=== PATIENT | male | born 1995 | race African-American/Black ===

== ENCOUNTER → 2017-03-12 | Outpatient (REF) | payer OTHER, MEDICAID | LOC: M LAB REF 17:09 | PROVIDERS: ATTEND Family Medicine Addiction Medicine | DX: Z20.2 Contact with and (suspected) exposure to infections with a predominantly sexual mode of transmission (principal) ==

== ENCOUNTER → 2017-03-31 | Outpatient (CLI) | payer MEDICAID | LOC: M OUTALCOH 11:39 | PROVIDERS: ATTEND Psychiatry & Neurology Psychiatry | DX: F12.20 Cannabis dependence, uncomplicated (principal) ==

== ENCOUNTER → 2019-02-05 | Outpatient (REF) | payer MEDICAID ==
[2019-02-05 17:57] LABS: ALBUMIN 3.6 GM/DL (3.2-5.2); ALT/SGPT 290 U/L (12-78); BILIRUBIN,TOTAL 0.3 MG/DL (0.2-1.0); BLOOD UREA NITROGEN 11 MG/DL (7-18); CARBON DIOXIDE LEVEL 26 MEQ/L (21-32); CHLORIDE LEVEL 111 MEQ/L (98-107); CHOLESTEROL LEVEL 114 MG/DL (<200); CHOLESTEROL RISK RATIO 2.035 (<5); FREE T4 0.93 NG/DL (0.76-1.46); GLOMERULAR FILTRATION RATE > 60.0 (>60); GLUCOSE, FASTING 72 MG/DL (70-100); HDL CHOLESTEROL 56 MG/DL (>40); LDL CHOLESTEROL 48 MG/DL (<100); NON-HDL-C 58 MG/DL; POTASSIUM SERUM 5.9 MEQ/L (3.5-5.1); SODIUM LEVEL 139 MEQ/L (136-145); TOTAL PROTEIN 6.9 GM/DL (6.4-8.2); TRIGLYCERIDES LEVEL 51 MG/DL (<150)
[2019-02-05 18:00] LABS: TOTAL 25(OH) VITAMIN D 18.1 NG/ML (30.0-100.0)
[2019-02-05 18:03] LABS: BASO % 0.6 % (0.0-1.0); EOS # 0.2 10^3/uL (0.0-0.5); EOS % 3.3 % (0.0-3.0); HEMOGLOBIN 14.7 g/dl (13.5-17.5); LYMPH # 2.5 10^3/uL (1.5-5.0); LYMPH % 38.6 % (24.0-44.0); MEAN CORPUSCULAR HEMOGLOBIN 28.9 pg (27.0-33.0); MEAN CORPUSCULAR HGB CONC 30.6 g/dl (32.0-36.5); MEAN CORPUSCULAR VOLUME 94.5 fl (80.0-96.0); MONO # 0.8 10^3/uL (0.0-0.8); MONO % 12.5 % (0.0-5.0); NEUTROPHILS # 2.9 10^3/uL (1.5-8.5); NEUTROPHILS % 44.7 % (36.0-66.0); PLATELET COUNT, AUTOMATED 246 10^3/uL (150-450); RED BLOOD COUNT 5.08 10^6/uL (4.30-6.10); WHITE BLOOD COUNT 6.4 10^3/uL (4.0-10.0)
[2019-02-05 18:09] LABS: HEMOGLOBIN A1c 4.9 %
[2019-02-05 18:41] LABS: HIV 1&2 SCREEN CENTAUR NEGATIVE (NEGATIVE)
[2019-02-08 10:50] LABS: HEPATITIS B SURFACE ANTIBODY POSITIVE (POSITIVE)
[2019-02-08 11:19] LABS: HEPATITIS C VIRUS ABY INDEX > 11.0 INDEX (<0.8)
== END ==
LOC: M LAB REF 16:25
PROVIDERS: ATTEND Nurse Practitioner Family
DX: Z11.3 Encounter for screening for infections with a predominantly sexual mode of transmission (principal); F19.10 Other psychoactive substance abuse, uncomplicated; Z13.29 Encounter for screening for other suspected endocrine disorder

== ENCOUNTER → 2019-02-25 | Outpatient (REF) | payer MEDICAID | LOC: M LAB REF 09:15 | PROVIDERS: ATTEND Nurse Practitioner Adult Health | DX: B18.2 Chronic viral hepatitis C (principal) ==

== ENCOUNTER 2019-03-05 22:20 | Observation (INO) | payer MEDICAID, OTHER ==
[~2019-03-05] VITALS: Ht 165.1 cm; Wt 70.5 kg
[2019-03-05] MEDS ORDERED: TAMSULOSIN 0.4 MG CAP PO ONE (22:30)
[2019-03-05] MEDS ORDERED: KETOROLAC 30 MG/ML VIAL (J1885) IV ONE (22:30)
[2019-03-05] MEDS ORDERED: NS 1,000 ML IV ONE (22:30)
[2019-03-05 22:46] LABS: BASO # 0.1 10^3/uL (0.0-0.2); BASO % 0.9 % (0.0-1.0); EOS # 0.2 10^3/uL (0.0-0.5); EOS % 2.6 % (0.0-3.0); HEMOGLOBIN 12.6 g/dl (13.5-17.5); LYMPH # 3.1 10^3/uL (1.5-5.0); LYMPH % 53.5 % (24.0-44.0); MEAN CORPUSCULAR HEMOGLOBIN 28.1 pg (27.0-33.0); MEAN CORPUSCULAR VOLUME 93.5 fl (80.0-96.0); MONO # 0.6 10^3/uL (0.0-0.8); MONO % 9.9 % (0.0-5.0); NEUTROPHILS # 1.9 10^3/uL (1.5-8.5); NEUTROPHILS % 32.6 % (36.0-66.0); PLATELET COUNT, AUTOMATED 242 10^3/uL (150-450); RED BLOOD COUNT 4.49 10^6/uL (4.30-6.10); WHITE BLOOD COUNT 5.9 10^3/uL (4.0-10.0)
[2019-03-05 23:13] LABS: ALBUMIN 3.3 GM/DL (3.2-5.2); ALT/SGPT 115 U/L (12-78); BILIRUBIN,DIRECT 0.9 MG/DL (0.0-0.2); BILIRUBIN,TOTAL 1.1 MG/DL (0.2-1.0); BLOOD UREA NITROGEN 13 MG/DL (7-18); CALCIUM LEVEL 8.6 MG/DL (8.5-10.1); CARBON DIOXIDE LEVEL 24 MEQ/L (21-32); CHLORIDE LEVEL 116 MEQ/L (98-107); CREATININE FOR GFR 1.01 MG/DL (0.70-1.30); GLOMERULAR FILTRATION RATE > 60.0 (>60); GLUCOSE, FASTING 145 MG/DL (70-100); LIPASE 242 U/L (73-393); POTASSIUM SERUM 5.7 MEQ/L (3.5-5.1); SODIUM LEVEL 141 MEQ/L (136-145); TOTAL PROTEIN 7.2 GM/DL (6.4-8.2)
[2019-03-05] MEDS ORDERED: KETAMINE HCL IV ONE (23:15)
[2019-03-05] MEDS ORDERED: NS IV ONE (23:15)
--- NOTE | 2019-03-05 23:15 | REPVR ---
PROCEDURE INFORMATION: Exam: CT Abdomen And Pelvis Without Contrast Exam date and time: 03/05/2019 10:45 PM Clinical history: 23 years old, male; Abdominal pain; Generalized; Additional info: R colic TECHNIQUE: Imaging protocol: Computed tomography of the abdomen and pelvis without contrast. Radiation optimization: All CT scans at this facility use at least one of these dose optimization techniques: automated exposure control; mA and/or kV adjustment per patient size (includes targeted exams where dose is matched to clinical indication); or iterative reconstruction. COMPARISON: No relevant prior studies available. FINDINGS: Liver: Normal. No mass. Gallbladder and bile ducts: Normal. No calcified stones. No ductal dilation. Pancreas: Normal. No ductal dilation. Spleen: Normal. No splenomegaly. Adrenals: Normal. No mass. Kidneys and ureters: Normal. No hydronephrosis. Stomach and bowel: Unremarkable. No obstruction. No mucosal thickening. Appendix: The appendix is within normal limits. There is no appendiceal enlargement, periappendiceal inflammatory changes or abscess. Intraperitoneal space: Unremarkable. No free air. No significant fluid collection. Vasculature: Unremarkable. No abdominal aortic aneurysm. Lymph nodes: Unremarkable. No enlarged lymph nodes. Bladder: Unremarkable as visualized. Reproductive: The prostate gland demonstrates mild hyperplasia. Bones/joints: Unremarkable. No acute fracture. Soft tissues: Unremarkable. IMPRESSION: 1. Mild prostatic hyperplasia. 2. The appendix is within normal limits. There is no appendiceal enlargement, periappendiceal inflammatory changes or abscess. Electronically signed by: Daljit Pino On 03/05/2019 23:14:35 PM
[2019-03-05] MEDS ORDERED: SOD POLYSTYRENE SULFONATE SUSP 15 GM/60 ML UD PO ONE (23:45)
[2019-03-06 00:47] LABS: APPEARANCE, URINE CLEAR (CLEAR); BACTERIA, URINE AUTO NEGATIVE (NEGATIVE); BILIRUBIN, URINE AUTO NEGATIVE (NEGATIVE); BLOOD, URINE BLOOD NEGATIVE (NEGATIVE); COLOR, URINE YELLOW (YELLOW); GLUCOSE, URINE (UA) AUTO NEGATIVE (NEGATIVE); KETONE, URINE AUTO NEGATIVE (NEGATIVE); LEUKOCYTE ESTERASE, URINE AUTO NEGATIVE (NEGATIVE); MUCUS, URINE SMALL (NEGATIVE); NITRITE, URINE AUTO NEGATIVE (NEGATIVE); PROTEIN, URINE AUTO NEGATIVE (NEGATIVE); RBC, URINE AUTO 1 /HPF (0-3); SPECIFIC GRAVITY URINE AUTO 1.015 (1.002-1.035); SQUAMOUS EPITHELIAL CELL UR AU 0 /HPF (0-6); UROBILINOGEN, URINE AUTO 0.2 mg/dL (0.0-2.0); WBC, URINE AUTO 3 /HPF (0-3)
[2019-03-06] MEDS ORDERED: ACETAMINOPHEN 500 MG TAB PO ONE (01:00)
[2019-03-06] MEDS ORDERED: MORPHINE 4 MG/ML 1ML VIAL/SYRINGE (J2270) IV ONE ×2 (01:15→01:45)
[2019-03-06] MEDS ORDERED: D5W/LR 1,000 ML IV SCH (01:45)
--- NOTE | 2019-03-06 01:47 | REPVR ---
PROCEDURE INFORMATION: Exam: US Scrotum Exam date and time: 03/06/2019 1:29 AM Clinical history: 23 years old, male; Flank pain and scrotum pain; Additional info: R testicle pain TECHNIQUE: Imaging protocol: Real-time ultrasound of the scrotum and contents with color Doppler and image documentation. COMPARISON: No relevant prior studies available. FINDINGS: Right testicle: The right testicle measures 5.6 x 3 x 3.1 cm. No no evidence of vascular flow to the right testicle is detected on Doppler evaluation. Left testicle: The left testicle measures 4.8 x 2.5 x 2.1 cm. There is normal left testicular vascular flow. The left testicular resistive index is 0.47. Epididymides: The right epididymis measures 8.4 mm in length. The left epididymis measures 8.2 mm length. Scrotum: There is a mild right hydrocele. IMPRESSION: No discernible vascular flow is detected to the right testicle with testicular swelling. The findings demonstrate evidence of right testicular torsion. Electronically signed by: Eliot Boone On 03/06/2019 01:46:31 AM
[2019-03-06] MEDS ORDERED: BUPIVACAINE HCL 0.25% 30 ML VIAL As Ordered ONE (01:58)
[2019-03-06] MEDS ORDERED: BACITRACIN OINT 30GM As Ordered ONE (02:04)
[2019-03-06] MEDS ORDERED: ceFAZolin 2 GM/D5W 50 ML IV BAG (J0690 PER 500MG) As Ordered ONE (02:25)
--- NOTE | 2019-03-06 02:32 | SMCUROLCON ---
Urology Consultation General Date of Consultation 03/06/19 Reason For Consultation This patient is seen for Testicular Torsion. History of Present Illness This is a 23 y/o M w/ no significant PMH, presenting to the ED w/ acute onset right testicular pain starting about 6 hrs ago. He denies n/v. No f/c/ns. He has never had anything like this before. Denies left testicular pain. A scrotal US in the ER is notable for absent flow to the right testicle. Past Medical History Medical History none Surgical Hstory no surgeries Medications Current Medications Current Medications Medications (Trade) Dose Ordered Sig/Sherita Route PRN Reason Start Time Stop Time Status Last Admin Dose Admin Dextrose/Lactated Ringer's 1,000 ml @ 150 mls/hr [id number] IV 03/06/19 01:45 03/06/19 01:57 Home Med (Med Rec Complete!) ASDIRECTED XX 03/06/19 02:00 03/06/19 01:54 DC Allergies Allergies: Coded Allergies: No Known Allergies (Unverified , 03/05/19) Review of Systems Constitutional: Denies: Fever, Chills, Sweats, Weakness, Malaise Pulmonary: Denies: Dyspnea, Cough Cardiovascular: Denies Chest Pain, Denies Palpitations Gastrointestinal: Reports: Abdominal Pain; Denies: Nausea, Vomiting Genitourinary: Reports: Other Symptoms (right testicular pain radiating up to his abdomen); Denies: Dysuria, Frequency, Incontinence, Hematuria, Retention Musculoskeletal: Denies: Neck Pain, Back Pain Psych: Reports: Mood Normal Physical Examination General Exam: Alert, Cooperative, No Acute Distress Chest Exam: Clear to auscultation Heart Exam: Rate Normal, Regular Rhythm Abdomen Exam: Soft, Tenderness (RLQ tenderness) Male Exam circumcised phallus w/o lesions; b/l descended testicles w/o masses; right testicle high-riding and tender w/ mild/moderate edema Vital Signs/I&O Vital Signs Date Time Temp Pulse Resp B/P (MAP) Pulse Ox O2 Delivery O2 Flow Rate FiO2 03/06/19 02:05 97.7 70 16 117/67 99 Room Air I&O- Last 24 Hours up to 6 AM 03/06/19 05:59 Intake Total 1100.282 ml Balance 1100.282 ml Laboratory Data 24H Labs Laboratory Tests 2 03/05/19 22:35: Immature Granulocyte % (Auto) 0.5, Neutrophils (%) (Auto) 32.6L, Lymphocytes (%) (Auto) 53.5H, Monocytes (%) (Auto) 9.9H, Eosinophils (%) (Auto) 2.6, Basophils (%) (Auto) 0.9, Neutrophils # (Auto) 1.9, Lymphocytes # (Auto) 3.1, Monocytes # (Auto) 0.6, Eosinophils # (Auto) 0.2, Basophils # (Auto) 0.1, Nucleated Red Blood Cells % (auto) 0.0, Urine Color YELLOW, Urine Appearance CLEAR, Urine pH 6.0, Urine Specific [place] 1.015, Urine Protein NEGATIVE, Urine Glucose (Auto)(UA) NEGATIVE, Urine Ketones (Auto) NEGATIVE, Urine Blood NEGATIVE, Urine Nitrite NEGATIVE, Urine Bilirubin NEGATIVE, Urine Urobilinogen 0.2, Urine Leukoc yte Esterase (Auto) NEGATIVE, Urine WBC (Auto) 3, Urine RBC (Auto) 1, Urine Hyaline Casts (Auto) 0, Urine Bacteria (Auto) NEGATIVE, Urine Squamous Epithelial Cells 0, Urine Mucus (Auto) SMALL, Urine Sperm (Auto) , Anion Gap 1L, Glomerular Filtration Rate > 60.0, Calcium Level 8.6, Total Bilirubin 1.1H, Direct Bilirubin 0.9H, Aspartate Amino Transf (AST/SGOT) 21, Alanine Aminotransferase (ALT/SGPT) 115H, Alkaline Phosphatase 106, Total Protein 7.2, Albumin 3.3, Albumin/Globulin Ratio 0.85L, Lipase 242 CBC/BMP Laboratory Tests 03/05/19 22:35 Microbiology Microbiology 03/05/19 Urine Culture, Received Pending Assessment This is a 23 y/o M w/ a right testicular torsion. It was recommended that we take him to the OR now for right orchiopexy, possible right orchiectomy. After a discussion of the risks and benefits, informed consent was signed. Plan - to OR now - NPO - ancef 2g IV OCOR - plan discharge home later this morning assuming pain is better controlled at that point AYLEEN WRAY MD Mar 06, 2019 02:32
[2019-03-06] MEDS ORDERED: DEXTROSE 50% 50 ML SYRINGE As Ordered ONE (02:38)
[2019-03-06] MEDS ORDERED: HumuLIN R (REGULAR) INSULIN (NovoLIN R) **100U/ML** PER UNIT As Ordered ONE ×2 (02:38→06:14)
[2019-03-06] MEDS ORDERED: MIDAZOLAM INJ 2 MG/2 ML VIAL (J2250) As Ordered ONE (02:56)
[2019-03-06] MEDS ORDERED: fentaNYL 100 MCG/2 ML INJECTION (J3010) As Ordered ONE (02:56)
[2019-03-06] MEDS ORDERED: PROPOFOL 200 MG/20 ML VIAL As Ordered ONE (02:56)
[2019-03-06] MEDS ORDERED: LIDOCAINE 2% INJ 100 MG/5 ML SDV (FOR ANES.) As Ordered ONE (02:56)
[2019-03-06] MEDS ORDERED: ROCURONIUM BROMIDE 50 MG/5 ML VIAL As Ordered ONE (02:56)
[2019-03-06] MEDS ORDERED: CALCIUM CHLORIDE 10% 1 GM/10 ML SYR As Ordered ONE (02:57)
[2019-03-06] MEDS ORDERED: SODIUM BICARBONATE 8.4% INJ 50 ML SYRINGE As Ordered ONE (02:57)
[2019-03-06] MEDS ORDERED: PHENYLephrine HCL 500 MCG/5 ML (100MCG/ML) SYRINGE (J2370) As Ordered ONE (03:08)
[2019-03-06] MEDS ORDERED: dexameTHASONE 4 MG/ML 1ML VIAL (J1100) As Ordered ONE (03:15)
[2019-03-06] MEDS ORDERED: ONDANSETRON 4MG/2ML VIAL (J2405) As Ordered ONE (03:15)
[2019-03-06] MEDS ORDERED: SUGAMMADEX SODIUM 500 MG/5 ML VIAL (BRIDION) As Ordered ONE (03:17)
[2019-03-06] MEDS ORDERED: PERC5TAB12 PO (04:13)
[2019-03-06] MEDS ORDERED: NS 1,000 ML IV SCH (04:15)
[2019-03-06] MEDS ORDERED: fentaNYL 100 MCG/2 ML INJECTION (J3010) IV PRN (04:15)
[2019-03-06] MEDS ORDERED: ONDANSETRON 4MG/2ML VIAL (J2405) IV PRN (04:15)
[2019-03-06] MEDS ORDERED: oxyCODONE 5MG TAB PO PRN (04:15)
--- NOTE | 2019-03-06 05:14 | HPEPDOC ---
[facility] Medical History & Physical Date of Admission Mar 06, 2019 Date of Service: Mar 06, 2019 Attending Physician: TRIXIE PEÑA MD History and Physical CHIEF COMPLAINT: s/p R orchipexy, found to have hyperkalemia HISTORY OF PRESENT ILLNESS: Brian Frias is a 23 YO M with history of HepC? who is s/p R orchipexy on 03/06/2019 for R testicular torsion found to have hyperkalemia at 5.7. The surgery was uneventful and the patient denies any chest pain, SOB, n/v/d at this time. Anesthesiology noted possible peaked T-waves on EKG strips captured in the OR. The patient does have a previous history of hype rkalemia (5.9) on lab draw 02/05/2019. To his knowledge, this was not worked up further. The patient denies the use of any medications, including those [id number], prior to his surgery. PAST MEDICAL HISTORY: Hepatitis C PAST SURGICAL HISTORY: R orchipexy SOCIAL HISTORY: nonsmoker, no EtOH, denies illicit drugs FAMILY HISTORY: T2DM ALLERGIES: Please see below. REVIEW OF SYSTEMS: CONSTITUTIONAL: Feels well. No fever or chills HEENT: denies vision changes, no sinus problems, denies any trouble swallowing CARDIOVASCULAR: no palpitations RESPIRATORY: Denies any shortness of breath GENITOURINARY: No dysuria MUSCULOSKELETAL: Denies any joint/muscle pain GASTROINTESTINAL: Denies abdominal pain, no nausea/vomiting/diarrhea SKIN: No new rashes or lesions NEUROLOGICAL: No loss of sensation PSYCHIATRIC: Reports normal mood, no delusions or hallucinations ENDOCRINE: No hot/cold intolerance HEMATOLOGIC/LYMPHATIC: No easy bruising, no lumps/bumps ALLERGIC/IMMUNOLOGIC: No sinus symptoms HOME MEDICATIONS: Please see below. PHYSICAL EXAMINATION: VITAL SIGNS: Please see below. GENERAL APPEARANCE: Laying in bed, appears stated age, no acute distress, calm, cooperative HEENT: EOMI, PERRLA, neck is supple with no thyromegaly or lymphadenopathy RESPIRATORY: Lungs are clear to auscultation bilaterally with no adventitious breath sounds appreciated CARDIOVASCULAR: no JVD, RRR,no murmurs/rubs/gallops ABDOMEN: Soft, nontender to palpation in all four quadrants, no masses/organomegaly EXTREMITIES: no clubbing, cyanosis or edema noted NEUROLOGICAL: No obvious focal deficits PSYCHIATRIC: normal mood/affect Skin: No rashes or ulcers. LN: No significant cervical or inguinal lymphadenopathy LABORATORY DATA: See below. IMAGING: none MICROBIOLOGY: Please see below. ASSESSMENT: This is a 23 YO M s/p R orchipexy for testicular torsion found to have hyperkalemia. Hospitalist service was called to admit the patient for further workup. . PLAN: 1. Hyperkalemia: possibly 2/2 hemolyzed specimen vs. diabetes/insulin resistance vs T4RTA vs recent excessive use of NSAIDS -EKG ordered -Pending Mg level, serum Osm, Urine Osm, Urine Na, Urine K, Urine Cr, A1c -Other electrolytes WNL -Continuous telemetry -continue IVF -Next BMP ordered for 0600. Will trend K. 2. S/p R orchipexy: -Routine postoperative care as directed by Urology -Pain control, IV Zofran, IVF DISPO: Pending workup for hyperkalemia Vital Signs Vital Signs Date Time Temp Pulse Resp B/P (MAP) Pulse Ox O2 Delivery O2 Flow Rate FiO2 03/06/19 04:20 83 18 116/64 (81) 97 Room Air 03/06/19 03:50 99.5 Laboratory Data Labs 24H Laboratory Tests 2 03/05/19 22:35: Immature Granulocyte % (Auto) 0.5, Neutrophils (%) (Auto) 32.6L, Lymphocytes (%) (Auto) 53.5H, Monocytes (%) (Auto) 9.9H, Eosinophils (%) (Auto) 2.6, Basophils (%) (Auto) 0.9, Neutrophils # (Auto) 1.9, Lymphocytes # (Auto) 3.1, Monocytes # (Auto) 0.6, Eosinophils # (Auto) 0.2, Basophils # (Auto) 0.1, Nucleated Red Blood Cells % (auto) 0.0, Urine Color YELLOW, Urine Appearance CLEAR, Urine pH 6.0, Urine Specific [place] 1.015, Urine Protein NEGATIVE, Urine Glucose (Auto)(UA) NEGATIVE, Urine Ketones (Auto) NEGATIVE, Urine Blood NEGATIVE, Urine Nitrite NEGATIVE, Urine Bilirubin NEGATIVE, Urine Urobilinogen 0.2, Urine Leukocyte Esterase (Auto) NEGATIVE, Urine WBC (Auto) 3, Urine RBC (Auto) 1, Urine Hyaline Casts (Auto) 0, Urine Bacteria (Auto) NEGATIVE, Urine Squamous Epithelial Cells 0, Urine Mucus (Auto) SMALL, Urine Sperm (Auto) , Anion Gap 1L, Glomerular Filtration Rate > 60.0, Calcium Level 8.6, Total Bilirubin 1.1H, Direct Bilirubin 0.9H, Aspartate Amino Transf (AST/SGOT) 21, Alanine Aminotransferase (ALT/SGPT) 115H, Alkaline Phosphatase 106, Total Protein 7.2, Albumin 3.3, Albumin/Globulin Ratio 0.85L, Lipase 242 03/06/19 03:08: Bedside Glucose (Misc Panel) 190H 03/06/19 03:21: POC pH (Misc Panel) 7.365, POC Base Excess (Misc Panel) -4.0L, POC Saturated Percent O2 (Misc) 100H, POC pO2 (Misc Panel) 178.0H, POC pCO2 (Misc Panel) 37.0, POC HCO3 (Misc Panel) 21.1L, POC Glucose (Misc Panel) 174H, POC Sodium (Misc Panel) 138, POC Potassium (Misc Panel) 5.6H, POC Total CO2 (Misc Panel) 22.0L, POC Ionized Calcium (Misc Panel) 5.6H, POC Hemoglobin (Calculated)(Misc) 11.9L, POC Hematocrit (Misc Panel) 35.0L 03/06/19 03:58: Bedside Glucose (Misc Panel) 106H CBC/BMP Laboratory Tests 03/05/19 22:35 Microbiology Microbiology 03/05/19 Urine Culture, Received Pending Home Medications Scheduled Oxycodone HCl/Acetaminophen (Percocet 5-325 mg Tablet) 1 Each Tablet, 1 TAB PO Q6H for moderate to severe pain Allergies Coded Allergies: No Known Allergies (Unverified , 03/05/19) GME ATTESTATION GME ATTESTATION My faculty preceptor for this patient encounter was physically present during the encounter and was fully available. All aspects of the patient interview, examination, medical decision making process, and medical care plan development were reviewed and approved by the faculty preceptor. The faculty preceptor is aware and concurs with the plan as stated in the body of this note and will attest to such by his/her cosignature. ATTENDING NOTE I examined at 435AM, discussed the case with and agree with the findings as documented with the addition of the following: Mr. Frias 23 yr old M who had an emergent orchiopexy for testicular torsion; per 's request he was will be admitted for evaluation of hyperkalemia and abnormalities on telemetry. The patient denies taking any medications and denies having palpitations. The mild hyperkalemia was likely due to tissue break down in the setting of testicular torsion. We will repeat the K and follow up on the EKG; he will likely go home later on today. LATE ENTRY 713AM Per d/w the patient's RN his EKG is still pending but he has peaked Twaves on telemetry Plan: stat EKG / calcium gluconate, sodium bicarb, insulin & dextrose + patiromer (to bind K) / f/u serial BMPs KAILYN DUONG MD Mar 06, 2019 05:08 TRIXIE PEÑA MD Mar 06, 2019 05:23
[2019-03-06 05:24] VITALS: BP 129/65
[2019-03-06 06:14] LABS: HEMATOCRIT 43.6 % (42.0-52.0); MEAN CORPUSCULAR HEMOGLOBIN 27.9 pg (27.0-33.0); MEAN CORPUSCULAR HGB CONC 29.8 g/dl (32.0-36.5); MEAN CORPUSCULAR VOLUME 93.6 fl (80.0-96.0); PLATELET COUNT, AUTOMATED 285 10^3/uL (150-450); RED BLOOD COUNT 4.66 10^6/uL (4.30-6.10); WHITE BLOOD COUNT 6.8 10^3/uL (4.0-10.0)
[2019-03-06 06:43] LABS: BLOOD UREA NITROGEN 9 MG/DL (7-18); CALCIUM LEVEL 9.2 MG/DL (8.5-10.1); CARBON DIOXIDE LEVEL 24 MEQ/L (21-32); CHLORIDE LEVEL 113 MEQ/L (98-107); CREATININE FOR GFR 0.96 MG/DL (0.70-1.30); GLOMERULAR FILTRATION RATE > 60.0 (>60); GLUCOSE, FASTING 96 MG/DL (70-100); POTASSIUM SERUM 6.2 MEQ/L (3.5-5.1); SODIUM LEVEL 140 MEQ/L (136-145)
[2019-03-06] MEDS ORDERED: SOD POLYSTYRENE SULFONATE SUSP 15 GM/60 ML UD PO ONE (07:00)
[2019-03-06] MEDS ORDERED: DEXTROSE 50% 50 ML SYRINGE IV STA (07:10)
[2019-03-06] MEDS ORDERED: HumuLIN R (REGULAR) INSULIN (NovoLIN R) **100U/ML** PER UNIT IV STA (07:10)
[2019-03-06] MEDS ORDERED: PATIROMER SORBITEX CALCIUM 8.4 GM POWDER PACKET (VELTASSA) PO ONE (07:15)
[2019-03-06] MEDS ORDERED: SODIUM CHLORIDE 0.9% 1000ML IV SCH (07:15)
[2019-03-06] MEDS ORDERED: CALCIUM GLUCONATE 1,000 MG in D5W MINI-BAG PLUS 100 ML IV ONE (07:15)
[2019-03-06 07:30] VITALS: BP 127/65
[2019-03-06 08:30] VITALS: BP 139/67
[2019-03-06 08:32] LABS: BLOOD UREA NITROGEN 8 MG/DL (7-18); CALCIUM LEVEL 9.1 MG/DL (8.5-10.1); CARBON DIOXIDE LEVEL 24 MEQ/L (21-32); CHLORIDE LEVEL 114 MEQ/L (98-107); CREATININE FOR GFR 0.94 MG/DL (0.70-1.30); GLOMERULAR FILTRATION RATE > 60.0 (>60); GLUCOSE, FASTING 88 MG/DL (70-100); POTASSIUM SERUM 7.1 MEQ/L (3.5-5.1); SODIUM LEVEL 138 MEQ/L (136-145)
[2019-03-06 09:00] LABS: CREATININE,RANDOM URINE 34.4 MG/DL; POTASSIUM RANDOM URINE 24.7 MEQ/L
--- NOTE | 2019-03-06 09:09 | ECGEPIP ---
[facility] Test Date: 2019-03-06 Pat Name: GARY LITTLE Department: Room: [place] [address] Gender: Male Gut Snatcher: SETH : 1995 Requested By: TRIXIE PEÑA Order Number: [id number] Reading MD: Tejas Galarza Measurements Intervals [place] Rate: 63 P: 69 SC: 120 QRS: 63 QRSD: 91 T: 31 QT: 356 QTc: 365 Interpretive Statements Normal sinus rhythm Early repolarization Comparison tracing not on file Lead V3 suspicious for Brugada syndrome but may be artifact Electronically Signed on 03-06-2019 9:08:50 EST by Tejas Galarza
--- NOTE | 2019-03-06 09:34 | RO ---
DATE OF PROCEDURE: 03/06/2019 PREPROCEDURE DIAGNOSIS: Right testicular torsion. POSTPROCEDURE DIAGNOSIS: Right testicular torsion. PROCEDURE: Right scrotal exploration and right orchiopexy. SURGEON: Dr. Jay Strauss FLIGHT TEST ENGINEER: None. ANESTHESIA: General. OPERATIVE INDICATIONS: This is a 23-year-old male who had acute onset right testicular pain earlier this evening. Scrotal ultrasound in the emergency room was notable for absence of blood flow to the right testicle. He was brought to the operating room emergently for exploration and orchiopexy. DESCRIPTION OF PROCEDURE: The patient was brought to the operating room and general anesthesia was induced. Prophylactic antibiotics were infused. He was then placed in supine position and prepped and draped in the usual sterile fashion. At this point, an approximately 3-4 cm transverse incision was made over the right hemiscrotum. I then dissected down through the scrotal wall layers and then the testicle was delivered out of the tunica vaginalis. The testicle was high riding and appeared to be torsed. The testicle was then detorsed and once it was completely detorsed of note it was torsed about 360 degrees. Shortly after detorsing the testicle, it quickly regained blood flow and the tissue appeared pink. At this point, any areas of bleeding were cauterized using the coagulation current. The wound was irrigated. At this point, the orchiopexy was performed, placing two separate #2-0 Vicryl sutures on the lateral aspect of the testicle and then each suture was brought out through the dartos muscle on each side. The testicle was then delivered back inside the right hemiscrotum in its normal anatomic position. The two sutures were then tied down to secure the testicle inside the scrotum. The dartos muscle was then closed with a running #2-0 Vicryl suture. The skin was closed with interrupted #2-0 chromic sutures. Local anesthetic was then applied, followed by the dressings and this marked the conclusion of the procedure. The patient was then awakened from anesthesia and transported to the recovery room in stable condition. Estimated blood loss: 10 mL. Complications: None. Specimen: None. Plan: Will observe the patient in the hospital for a few hours and if his pain is well controlled he can be discharged home. Will schedule followup for him to be seen in the clinic in a week or two for a postoperative visit.
--- NOTE | 2019-03-06 10:25 | DS.PDOC ---
Discharge Summary General Date of Admission Mar 05, 2019 at 22:22 Date of Discharge 03/06/19 Discharge Summary PROCEDURES PERFORMED DURING STAY: None. ADMITTING DIAGNOSES: 1. Testicular pain. DISCHARGE DIAGNOSES: 1. Right orchiopexy, Hyperkalemia. COMPLICATIONS/CHIEF COMPLAINT: Hyperkalemia. HISTORY OF PRESENT ILLNESS: This is 23 YO HM with history of HepC? who is s/p R orchipexy on 03/06/2019 for R testicular torsion found to have hyperkalemia at 5.7. The surgery was uneventful and the patient denies any chest pain, SOB, n/v/d at this time. Anesthesiology noted possible peaked T-waves on EKG strips captured in the OR. The patient does have a previous history of hyperkalemia (5.9) on lab draw 02/05/2019. To his knowledge, this was not worked up further. The patient denies the use of any medications, including those [id number], prior to his surgery.. HOSPITAL COURSE: [ Patient was admitted by the night hospitalist team after patient had orchiopexy done was found to have a potassium of 5.7, and possible CPK and hence was admitted for further observation. Patient repeat potassium pro gressively was going up. His last number was 7.1. Insulin, glucose. Calcium gluconate and Veltesa was ordered by night hospitalist, patient decided to sign out AMA. He did not want any medications on IV access to be reestablished again. I had a detailed conversation initially [id number] where he was willing to wait for his treatment, but O on. Over the phone with any decided he will sign out AGAINST MEDICAL ADVICE. I explained to him about the possibilities of cardiac arrhythmias and's consequences of hyperkalemia including were explained to him, but as per patient, he does not care, and he wishes to leave now. Otherwise, he will run away. Patient signed out AMA and left the hospital. Patient also was explained by Dr. Strauss about all this consequences of not getting proper care. DISCHARGE MEDICATIONS: Please see below. ALLERGIES: Please see below. PHYSICAL EXAMINATION ON DISCHARGE: VITAL SIGNS: Please see below. GENERAL: Patient signed out AMA clinical examination not done on this discharge HEENT: NECK: CARDIOVASCULAR EXAMINATION: RESPIRATORY EXAMINATION: ABDOMINAL EXAMINATION: EXTREMITIES: SKIN: NEUROLOGICAL EXAMINATION: PSYCHIATRIC EXAMINATION: LABORATORY DATA: Please see below. IMAGING: None PROGNOSIS: Unknown ACTIVITY: Signed out AMA. DIET: Sign out AMA DISCHARGE PLAN: Signed out AMA DISPOSITION: 07 Against Medical Advice. DISCHARGE INSTRUCTIONS: 1. None given. ITEMS TO FOLLOWUP ON ON OUTPATIENT: 1. Signed out AMA. DISCHARGE CONDITION: AMA. TIME SPENT ON DISCHARGE:15 minutes. Vital Signs/I&Os Vital Signs Date Time Temp Pulse Resp B/P (MAP) Pulse Ox O2 Delivery O2 Flow Rate FiO2 03/06/19 08:30 98.0 88 18 139/67 (91) 97 Room Air I&O- Last 24 Hours up to 6 AM 03/06/19 06:00 Intake Total 1940.282 ml Output Total 410 ml Balance 1530.282 ml Laboratory Data Labs 24H Laboratory Tests 2 03/05/19 22:35: Immature Granulocyte % (Auto) 0.5, Neutrophils (%) (Auto) 32.6L, Lymphocytes (%) (Auto) 53.5H, Monocytes (%) (Auto) 9.9H, Eosinophils (%) (Auto) 2.6, Basophils (%) (Auto) 0.9, Neutrophils # (Auto) 1.9, Lymphocytes # (Auto) 3.1, Monocytes # (Auto) 0.6, Eosinophils # (Auto) 0.2, Basophils # (Auto) 0.1, Nucleated Red Blood Cells % (auto) 0.0, Urine Color YELLOW, Urine Appearance CLEAR, Urine pH 6.0, Urine Specific [place] 1.015, Urine Protein NEGATIVE, Urine Glucose (Auto)(UA) NEGATIVE, Urine Ketones (Auto) NEGATIVE, Urine Blood NEGATIVE, Urine Nitrite NEGATIVE, Urine Bilirubin NEGATIVE, Urine Urobilinogen 0.2, Urine Leukocyte Esterase (Auto) NEGATIVE, Urine WBC (Auto) 3, Urine RBC (Auto) 1, Urine Hyaline Casts (Auto) 0, Urine Bacteria (Auto) NEGATIVE, Urine Squamous Epithelial Cells 0, Urine Mucus (Auto) SMALL, Urine Sperm (Auto) , Anion Gap 1L, Glomerular Filtration Rate > 60.0, Calcium Level 8.6, Total Bilirubin 1.1H, Direct Bilirubin 0.9H, Aspartate Amino Transf (AST/SGOT) 21, Alanine Aminotransferase (ALT/SGPT) 115H, Alkaline Phosphatase 106, Total Protein 7.2, Albumin 3.3, Albumin/Globulin Ratio 0.85L, Lipase 242 03/06/19 03:08: Bedside Glucose (Misc Panel) 190H 03/06/19 03:21: POC pH (Misc Panel) 7.365, POC Base Excess (Misc Panel) -4.0L, POC Saturated Percent O2 (Misc) 100H, POC pO2 (Misc Panel) 178.0H, POC pCO2 (Misc Panel) 37.0, POC HCO3 (Misc Panel) 21.1L, POC Glucose (Misc Panel) 174H, POC Sodium (Misc Panel) 138, POC Potassium (Misc Panel) 5.6H, POC Total CO2 (Misc Panel) 22.0L, POC Ionized Calcium (Misc Panel) 5.6H, POC Hemoglobin (Calculated)(Misc) 11.9L, POC Hematocrit (Misc Panel) 35.0L 03/06/19 03:58: Bedside Glucose (Misc Panel) 106H 03/06/19 05:13: Bedside Glucose (Misc Panel) 94 03/06/19 05:22: Nucleated Red Blood Cells % (auto) 0.0, Anion Gap 3L, Glomerular Filtration Rate > 60.0, Estimated Mean Plasma Glucose 97, Hemoglobin A1c 5.0, Osmolality 293, Calcium Level 9.2, Magnesium Level 1.9 03/06/19 07:24: Anion Gap 0L, Glomerular Filtration Rate > 60.0, Calcium Level 9.1 03/06/19 08:17: Urine Random Osmolality 294L, Urine Random Creatinine 34.4, Urine Random Sodium 87, Urine Random Potassium 24.7, Urine Random Urea Nitrogen 189 CBC/BMP Laboratory Tests 03/05/19 22:35 03/06/19 05:22 03/06/19 07:24 FSBS Laboratory Tests Test 03/06/19 03:08 03/06/19 03:58 03/06/19 05:13 Range/Units Bedside Glucose (Misc Panel) 190 106 94 70-105 MG/DL Microbiology Microbiology 03/05/19 Urine Culture, Received Pending Discharge Medications Scheduled Oxycodone HCl/Acetaminophen (Percocet 5-325 mg Tablet) 1 Each Tablet, 1 TAB PO Q6H for moderate to severe pain Allergies Coded Allergies: No Known Allergies (Unverified , 03/05/19) SHAKIRA QUEVEDO MD Mar 06, 2019 10:24
== END 2019-03-06 09:10 | disposition left against medical advice (07) ==
LOC: M ED 22:20 → M SDC 22:21 → M ED INP 22:22 → M MSPAV 03-06 04:44
PROVIDERS: ADMIT Internal Medicine; ATTEND Internal Medicine
DX: N44.00 Torsion of testis, unspecified (principal); E87.5 Hyperkalemia; R94.31 Abnormal electrocardiogram [ECG] [EKG]; B19.20 Unspecified viral hepatitis C without hepatic coma; F17.200 Nicotine dependence, unspecified, uncomplicated; Z87.442 Personal history of urinary calculi; Z79.891 Long term (current) use of opiate analgesic
CPT/HCPCS: 36415; 54600; 74176; 76870; 80048; 80076; 81001; 82330; 82570; 82947; 83036; 83690; 83735; 83930; 83935; 84132; 84133; 84295; 84300; 84540; 85014; 85025; 85027; 87086; 93005; 93976; 96374; 96375; 96376; 99284; J0690; J1100; J1885; J2250; J2270; J2370; J2405; J3010

== ENCOUNTER → 2019-03-17 | Outpatient (REF) | payer OTHER ==
[~2019-03-17] MED LIST: PERC5TAB12 PO
== END ==
LOC: M SMT 13:06
PROVIDERS: ATTEND Nurse Practitioner Family
DX: N44.00 Torsion of testis, unspecified (principal)

== ENCOUNTER → 2019-11-04 | Outpatient (CLI) | payer OTHER ==
--- NOTE | 2019-11-04 14:23 | REP ---
REASON: Pain after trauma. There is a transverse fracture involving the base of the proximal diaphysis of the 5th metacarpal with associated soft tissue swelling. There is slight dorsal angulation. The exam is limited by AP and lateral views only. Additional fractures cannot be ruled out. IMPRESSION: Fracture and limitations as described above. Electronically Signed by Walter Grant DO 11/04/2019 04:58 P
== END ==
LOC: M WUC 11:13
PROVIDERS: ATTEND Surgery
DX: S62.34 Nondisplaced fracture of base of other metacarpal bone (principal); X58.XXXD Exposure to other specified factors, subsequent encounter

== ENCOUNTER → 2020-02-16 | Outpatient (REF) | payer OTHER, MEDICAID ==
[2020-02-16 13:31] LABS: HEMOGLOBIN A1c 5.3 %
[2020-02-16 13:45] LABS: ALBUMIN 4.2 GM/DL (3.2-5.2); ALT/SGPT 16 U/L (12-78); BILIRUBIN,TOTAL 0.4 MG/DL (0.2-1.0); BLOOD UREA NITROGEN 10 MG/DL (7-18); CALCIUM LEVEL 9.8 MG/DL (8.5-10.1); CARBON DIOXIDE LEVEL 22 MEQ/L (21-32); CHLORIDE LEVEL 108 MEQ/L (98-107); CHOLESTEROL LEVEL 210 MG/DL (<200); CREATININE FOR GFR 0.92 MG/DL (0.70-1.30); GLOMERULAR FILTRATION RATE > 60.0 (>60); GLUCOSE, FASTING 89 MG/DL (70-100); HDL CHOLESTEROL 95 MG/DL (>40); HEPATITIS B SURFACE ANTIBODY NEGATIVE (POSITIVE); LDL CHOLESTEROL 104 MG/DL (<100); NON-HDL-C 115 MG/DL; POTASSIUM SERUM 5.9 MEQ/L (3.5-5.1); SODIUM LEVEL 136 MEQ/L (136-145); TOTAL 25(OH) VITAMIN D 12.9 NG/ML (30.0-100.0); TOTAL PROTEIN 7.9 GM/DL (6.4-8.2); TRIGLYCERIDES LEVEL 53 MG/DL (<150)
[2020-02-16 13:54] LABS: HEPATITIS B SURFACE ANTIGEN NEGATIVE (NEGATIVE)
[2020-02-16 14:23] LABS: HIV 1&2 SCREEN CENTAUR NEGATIVE (NEGATIVE)
[2020-02-22 14:10] LABS: HEPATITIS A IgG TOTAL Positive (Negative); HEPATITIS B CORE ANTIBODY IGG Negative (Negative)
== END ==
LOC: M LAB REF 11:33
PROVIDERS: ATTEND Nurse Practitioner Family
DX: F17.200 Nicotine dependence, unspecified, uncomplicated (principal); B18.2 Chronic viral hepatitis C; F19.10 Other psychoactive substance abuse, uncomplicated; Z13.9 Encounter for screening, unspecified

== ENCOUNTER 2020-12-10 14:17 | Inpatient (IN) | payer MEDICAID, OTHER ==
[~2020-12-10] VITALS: Ht 165.1 cm; Wt 77.2 kg
[2020-12-10] MEDS ORDERED: LORazepam 2 MG/ML VIAL IM ONE ×2 (14:40→17:55)
[2020-12-10] MEDS ORDERED: HALOPERIDOL 5MG/ML VIAL (J1630 PER 1) IM ONE ×2 (14:40→17:55)
[2020-12-10] MEDS ORDERED: diphenhydrAMINE 50MG/ML VIAL (J1200) IM ONE ×2 (14:40→17:55)
[2020-12-10 16:22] LABS: HEMATOCRIT 50.9 % (42.0-52.0); HEMOGLOBIN 15.9 g/dl (13.5-17.5); MEAN CORPUSCULAR HEMOGLOBIN 28.6 pg (27.0-33.0); MEAN CORPUSCULAR HGB CONC 31.2 g/dl (32.0-36.5); MEAN CORPUSCULAR VOLUME 91.5 fl (80.0-96.0); PLATELET COUNT, AUTOMATED 296 10^3/uL (150-450); RED BLOOD COUNT 5.56 10^6/uL (4.30-6.10); WHITE BLOOD COUNT 9.6 10^3/uL (4.0-10.0)
[2020-12-10 16:52] LABS: AMPHETAMINES LEVEL URINE POSITIVE (NEGATIVE); BARBITURATES URINE NEGATIVE (NEGATIVE); BENZODIAZEPINES URINE NEGATIVE (NEGATIVE); CANNABINOIDS URINE NEGATIVE (NEGATIVE); COCAINE METABOLITE URINE NEGATIVE (NEGATIVE); METHADONE URINE NEGATIVE (NEGATIVE); OPIATES URINE NEGATIVE (NEGATIVE); PHENCYCLIDINE URINE NEGATIVE (NEGATIVE)
[2020-12-10 17:03] LABS: ACETAMINOPHEN LEVEL < 2.0 UG/ML (10.0-30.0); ALBUMIN 4.5 GM/DL (3.2-5.2); ALT/SGPT 21 U/L (12-78); BILIRUBIN,DIRECT < 0.1 MG/DL (0.0-0.2); BILIRUBIN,TOTAL 0.3 MG/DL (0.2-1.0); BLOOD UREA NITROGEN 17 MG/DL (7-18); CALCIUM LEVEL 9.7 MG/DL (8.5-10.1); CARBON DIOXIDE LEVEL 24 MEQ/L (21-32); CHLORIDE LEVEL 113 MEQ/L (98-107); CREATININE FOR GFR 1.18 MG/DL (0.70-1.30); ETHYL ALCOHOL (ETHANOL) < 0.003 % (0.000-0.010); GLOMERULAR FILTRATION RATE > 60.0 (>60); GLUCOSE, FASTING 87 MG/DL (70-100); POTASSIUM SERUM 6.2 MEQ/L (3.5-5.1); SALICYLATE LEVEL < 1.7 MG/DL (5.0-30.0); SODIUM LEVEL 141 MEQ/L (136-145); TOTAL PROTEIN 8.6 GM/DL (6.4-8.2)
[2020-12-10] MEDS ORDERED: CALCIUM GLUCONATE 1,000 MG in D5W MINI-BAG PLUS 100 ML IV ONE ×2 (18:05→18:10)
[2020-12-10] MEDS ORDERED: DEXTROSE 50% 50 ML SYRINGE IV STA (18:08)
[2020-12-10] MEDS ORDERED: HumuLIN R (REGULAR) INSULIN (NovoLIN R) **100U/ML** PER UNIT IV STA (18:08)
[2020-12-10] MEDS ORDERED: CALCIUM CHLORIDE 10% 1 GM in D5W 100 ML IV ONE (18:10)
[2020-12-10] MEDS ORDERED: SOD POLYSTYRENE SULFONATE SUSP 15 GM/60 ML UD PO ONE (18:10)
[2020-12-10] MEDS ORDERED: FUROSEMIDE 40MG/4ML VIAL (J1940) IV ONE (18:10)
[2020-12-10] MEDS ORDERED: ACETAMINOPHEN TAB 650MG DOSE (2X325MG) PO PRN (18:10)
[2020-12-10] MEDS ORDERED: ALBUTEROL SULFATE 2.5 MG/0.5 ML INH NEB SOLN NEB ONE (18:10)
--- NOTE | 2020-12-10 18:38 | HPEPDOC ---
General Date of Admission 12/10/20 Date of Service: Dec 10, 2020 Chief Complaint The patient is a 25-year-old male admitted with a reason for visit of MHE. Source: Patient Exam Limitations: No limitations Severity: Moderate History of Present Illness Patient 25 years old male who was brought by police to the hospital. Patient developed acute psychosis secondary to amphetamines. The police report stated that he threatened to kill his mom. When I saw patient he was acutely psychotic he did not let me examine him. Patient refused any IV medications and he did not let us to do EKG. He stated he would rather jump off the bridge rather receive any IV medications. In ER CBC shows white blood count of 9.6, potassium 6.2, creatinine 1.1, amphetamines in the urine. Patient afebrile. Poison Control Center was contacted by me, they recommended monitor EKG, sedation with benzodiazepines. Home Medications No Active Prescriptions or Reported Meds Allergies Coded Allergies: No Known Allergies (Unverified , 03/05/19) Past Medical History Medical History Not known Family History Patient refused to give it Social History * Smoker: other (Patient refused to provide information) Alcohol: other (Patient refused to provide information) Drugs: other (Patient refused to provide information) A-FIB/CHADSVASC A-FIB History Current/History of A-Fib/PAF?: No Current PO Anticoag Therapy: No Review of Systems Constitutional: Reports: Other (Patient refused to provide any information) Physical Examination General Exam: Positive: Other (Patient refused physical examination) Vital Signs Vital Signs Date Time Temp Pulse Resp B/P (MAP) Pulse Ox O2 Delivery O2 Flow Rate FiO2 12/10/20 15:03 97.6 106 20 157/96 (116) 98 Room Air Laboratory Data Labs 24H Laboratory Tests 2 12/10/20 14:35: Nucleated Red Blood Cells % (auto) 0.0, Anion Gap 4L, Glomerular Filtration Rate > 60.0, Calcium Level 9.7, Total Bilirubin 0.3, Direct Bilirubin < 0.1, Aspartate Amino Transf (AST/SGOT) 13, Alanine Aminotransferase (ALT/SGPT) 21, Alkaline Phosphatase 83, Total Protein 8.6H, Albumin 4.5, Albumin/Globulin Ratio 1.1, Thyroid Stimulating Hormone (TSH) 3.640, Salicylates Level < 1.7L, Urine Opiates Screen NEGATIVE, Urine Methadone Screen NEGATIVE, Acetaminophen Level < 2.0L, Urine Barbiturates Screen NEGATIVE, Urine Phencyclidine Screen NEGATIVE, Urine Amphetamines Screen POSITIVEH, Urine Benzodiazepines Screen NEGATIVE, Urine Cocaine Metabolite Screen NEGATIVE, Urine Cannabinoids Screen NEGATIVE, E thyl Alcohol Level < 0.003 CBC/BMP Laboratory Tests 12/10/20 14:35 Assessment/Plan Patient 25 years old male who was brought by police to the hospital. Patient de veloped acute psychosis secondary to amphetamines. The police report stated that he threatened to kill his mom. When I saw patient he was acutely psychotic he did not let me examine him. Patient refused any IV medications and he did not let us to do EKG. He stated he would rather jump off the bridge rather receive any IV medications. In ER CBC shows white blood count of 9.6, potassium 6.2, creatinine 1.1, amphetamines in the urine. Patient afebrile. Poison Control Center was contacted by me, they recommended monitor EKG, sedation with benzodiazepines. Problems (1) Acute psychosis Status: Acute Problem Text: Patient developed suicidal ideation Sitter Sedation with diazepam 2 mg IV every 4h Patient will need psych evaluation after initial stabilization (2) Amphetamine abuse Status: Acute Problem Text: Poison Control Center recommended to monitor EKG, telemetry and sedation with benzodiazepines. Avoid antihistamines If patient developed fever use external cooling (3) Hyperkalemia Status: Acute Problem Text: Will monitor EKG IV bicarbonate, D50, IV insulin 10 units IV Calcium gluconate Kayexalate Appreciate/agree with nephrology's consult We will check CPK Plan / VTE VTE Prophylaxis Ordered?: Yes TAHIRA PETERSON DO Dec 10, 2020 18:38
[2020-12-10] MEDS: diazePAM 10MG/2ML SYRINGE (J3360 PER 5MG) IV SCH ×2 (19:00→23:06)
[2020-12-10] MEDS: SODIUM BICARBONATE 150 MEQ in D5W 1,000 ML IV SCH ×2 (19:00→21:50)
[2020-12-10] MEDS ORDERED: HOME MED LIST COMPLETE! XX SCH (19:05)
[2020-12-10] MEDS: NS 1,000 ML IV SCH ×3 (19:07→23:06)
[2020-12-10 19:31] LABS: BLOOD UREA NITROGEN 17 MG/DL (7-18); CALCIUM LEVEL 9.5 MG/DL (8.5-10.1); CARBON DIOXIDE LEVEL 27 MEQ/L (21-32); CHLORIDE LEVEL 112 MEQ/L (98-107); CPK CREATINE PHOSPHOKINASE 148 U/L (39-308); CREATININE FOR GFR 1.27 MG/DL (0.70-1.30); GLOMERULAR FILTRATION RATE > 60.0 (>60); GLUCOSE, FASTING 79 MG/DL (70-100); POTASSIUM SERUM 5.6 MEQ/L (3.5-5.1); SODIUM LEVEL 144 MEQ/L (136-145)
[2020-12-10 19:53] LABS: RSV AMPLIFICATION NEGATIVE (NEGATIVE)
[2020-12-10 21:25] VITALS: BP 109/59
[2020-12-10 22:40] LABS: BLOOD UREA NITROGEN 18 MG/DL (7-18); CALCIUM LEVEL 8.7 MG/DL (8.5-10.1); CARBON DIOXIDE LEVEL 22 MEQ/L (21-32); CHLORIDE LEVEL 115 MEQ/L (98-107); CREATININE FOR GFR 1.25 MG/DL (0.70-1.30); GLOMERULAR FILTRATION RATE > 60.0 (>60); GLUCOSE, FASTING 89 MG/DL (70-100); POTASSIUM SERUM 5.5 MEQ/L (3.5-5.1); SODIUM LEVEL 143 MEQ/L (136-145)
[2020-12-11 02:49] LABS: BLOOD UREA NITROGEN 18 MG/DL (7-18); CALCIUM LEVEL 8.5 MG/DL (8.5-10.1); CARBON DIOXIDE LEVEL 23 MEQ/L (21-32); CHLORIDE LEVEL 117 MEQ/L (98-107); CREATININE FOR GFR 1.08 MG/DL (0.70-1.30); GLOMERULAR FILTRATION RATE > 60.0 (>60); GLUCOSE, FASTING 90 MG/DL (70-100); SODIUM LEVEL 144 MEQ/L (136-145)
[2020-12-11] MEDS ORDERED: CALCIUM GLUCONATE 1,000 MG in D5W MINI-BAG PLUS 100 ML IV ONE (03:00)
[2020-12-11] MEDS: diazePAM 10MG/2ML SYRINGE (J3360 PER 5MG) IV SCH ×2 (03:00→06:47)
[2020-12-11] MEDS ORDERED: HumuLIN R (REGULAR) INSULIN (NovoLIN R) **100U/ML** PER UNIT IV STA ×2 (03:00→07:49)
[2020-12-11] MEDS ORDERED: DEXTROSE 50% 50 ML SYRINGE IV STA ×2 (03:00→07:49)
[2020-12-11] MEDS: NS 1,000 ML IV SCH ×2 (04:51→14:50)
--- NOTE | 2020-12-11 05:43 | ECGEPIP ---
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
[2020-12-11 05:53] LABS: HEMATOCRIT 45.1 % (42.0-52.0); MEAN CORPUSCULAR HEMOGLOBIN 28.9 pg (27.0-33.0); PLATELET COUNT, AUTOMATED 206 10^3/uL (150-450); RED BLOOD COUNT 4.85 10^6/uL (4.30-6.10); WHITE BLOOD COUNT 6.4 10^3/uL (4.0-10.0)
[2020-12-11 06:00] VITALS: BP 115/58
[2020-12-11 06:24] LABS: ALBUMIN 3.5 GM/DL (3.2-5.2); ALT/SGPT 14 U/L (12-78); BILIRUBIN,TOTAL 0.4 MG/DL (0.2-1.0); BLOOD UREA NITROGEN 16 MG/DL (7-18); CALCIUM LEVEL 8.6 MG/DL (8.5-10.1); CARBON DIOXIDE LEVEL 22 MEQ/L (21-32); CHLORIDE LEVEL 116 MEQ/L (98-107); CREATININE FOR GFR 1.14 MG/DL (0.70-1.30); GLOMERULAR FILTRATION RATE > 60.0 (>60); GLUCOSE, FASTING 135 MG/DL (70-100); POTASSIUM SERUM 5.5 MEQ/L (3.5-5.1); SODIUM LEVEL 142 MEQ/L (136-145); TOTAL PROTEIN 6.4 GM/DL (6.4-8.2)
[2020-12-11] MEDS ORDERED: SOD POLYSTYRENE SULFONATE SUSP 15 GM/60 ML UD PO ONE (08:00)
[2020-12-11] MEDS ORDERED: HEPARIN SOD (PORCINE) 5000UNITS/ML 1ML VIAL/SYRINGE SC SCH (09:00)
[2020-12-11] MEDS ORDERED: diazePAM 10MG/2ML SYRINGE (J3360 PER 5MG) IV PRN (11:00)
--- NOTE | 2020-12-11 11:25 | CR ---
CONSULTATION DATE: 12/11/2020 REQUESTING PHYSICIAN: Kal Pedraza DO REASON FOR CONSULTATION: Hyperkalemia in this patient with amphetamine overdose. HISTORY OF PRESENT ILLNESS: History is obtained from chart review and discussion with healthcare team. The patient is unable to provide history secondary to clinical condition. Mr. Brian Frias is a 25-year-old male who was admitted to the hospital because of acute psychosis secondary to amphetamines. In the emergency room, the patient was noted to be hypertensive and mildly tachycardic and agitated and combative. An initial laboratory study showed significant hyperkalemia with potassium of 6.2. A creatine kinase level was negative and his renal function was intact with creatinine of 1.1. Urinary amphetamine screen was positive. The patient was treated overnight with IV diazepam, IV fluids, calcium gluconate, intramuscular haloperidol, intramuscular Ativan. He was ordered for a dose of Kayexalate but he refused both doses. He did get one dose of IV Lasix. He has not had any oral intake since he was admitted and has not taken any oral medications, either. Nephrology evaluation was requested as patient is persistently hyperkalemic with potassium 5.5 on the latest labs this morning. The patient is seen at the bedside. He is sedated. There is a one-to-one sitter present. REVIEW OF SYSTEMS: Unable to obtain secondary to clinical condition. PAST MEDICAL HISTORY: Unknown. PAST SURGICAL HISTORY: Unknown. FAMILY HISTORY: Unable to obtain, unknown. SOCIAL HISTORY: Unable to obtain, unknown. HOME MEDICATIONS: No active prescriptions noted. ALLERGIES: No known drug allergies. PHYSICAL EXAMINATION: Vital signs: Temperature 97.8, pulse 58, respiratory rate 18, blood pressure 115/58, saturating 99% on room air. Weight in the bed scale today is not done. General: Patient is seen lying in bed, eyes closed, does not open eyes to command. He is sedated. He does stick out his tongue when I prompt him to and he also does squeeze my hand. HEENT: His tongue is moist. Neck: Supple. Jugular veins are not elevated. Heart: Heart sounds are regular, S1, S2. I do not appreciate a murmur. Lungs: Show good air movement bilaterally. Abdomen: Soft and nontender. His bladder feels a little bit full but I could not fully examine. Extremities: Show no edema, clubbing or cyanosis. Peripheral pulses are palpable. Neurologic: Patient has been sedated but he follows some simple commands, but does not verbally speak with me. LABORATORY DATA: Sodium 142, potassium 5.5, chloride 116, bicarbonate 22, BUN 16, creatinine 1.1, magnesium 2.0, hemoglobin 14.0. There is no imaging done on this admission. INPATIENT MEDICATIONS: 1. I note he received the usual cocktail of insulin, D50 and calcium gluconate. 2. He is also on normal saline at 120 mL per hour. 3. He got a one-time dose of Lasix 40 mg IV x1. 4. He also has received Haldol and diazepam. PROBLEMS: 1. Hyperkalemia. Patient has been temporarily treated with the usual cocktail of insulin, D50 and calcium gluconate. However, he has refused Kayexalate. I see two doses of Kayexalate were ordered but neither dose was administered as patient is not taking anything oral at this time, has not had any oral intake nor any oral medication. I would continue him on IV fluid hydration at this time and if his potassium remains elevated, we can give another dose of IV Lasix and if he starts to take oral medications, he can receive Kayexalate at that time. I am also going to get a postvoid residual bladder scan as I felt his bladder was somewhat distended on exam and only one urine void has been recorded since admission despite the patient receiving IV fluids overnight. 2. Acute psychosis. Patient is sedated as per primary team and is on one-to-one sitter. We are waiting for him to start taking oral intake. Poison control was contacted in regards to his amphetamine use. His CPK level was negative. He will continue on IV fluids until his mentation and oral intake improve.
--- NOTE | 2020-12-11 14:33 | IPNPDOC ---
Text Note Date of Service The patient was seen on 12/11/20. NOTE Subjective: patient continues to be agitated, refusing IV medications and p.o. Kayexalate. He developed paranoia, threatening to kill the staff if we are not let him go. Objective GENERAL APPEARANCE: in severe distress HEENT: no scleral icterus, no JVD, EOMI CARDIOVASCULAR: S1S2 LUNGS: CTA ABDOMEN: soft & not tender w palpation MUSCULOSKELETAL: no cyanosis, no swelling INTEGUMENT: no generalized pallor NEUROLOGICAL: pressured speech, tangential thoughts, cranial nerves II to XII intact Assessment and plan Patient 25 years old male who was brought by police to the hospital. Patient developed acute psychosis secondary to amphetamines. The police report stated that he threatened to kill his mom. When I saw patient he was acutely psychotic he did not let me examine him. Patient refused any IV medications and he did not let us to do EKG. He stated he would rather jump off the bridge rather receive any IV medications. In ER CBC shows white blood count of 9.6, potassium 6.2, creatinine 1.1, amphetamines in the urine. Patient afebrile. Poison Control Center was contacted by me, they recommended monitor EKG, sedation with benzodiazepines. Acute psychosis/amphetamine abuse Secondary to amphetamine abuse Patient refused to take any medications I talked with Dr. Mitchell and she will see the patient today Hyperkalemia Potassium continues to be high, 5.5 Patient refused p.o. and IV medications in the morning He refused EKG in the morning We will try to give him Lasix IV and will continue IV hydration VS,Galobone, I+O VS, Fishbone, I+O Laboratory Tests 12/10/20 14:35 12/10/20 17:40 12/10/20 22:00 12/11/20 02:10 12/11/20 05:37 Vital Signs Date Time Temp Pulse Resp B/P (MAP) Pulse Ox O2 Delivery O2 Flow Rate FiO2 12/11/20 06:00 97.8 58 18 115/58 (77) 99 Room Air I&O- Last 24 Hours up to 6 AM 12/11/20 05:59 Intake Total 300 ml Output Total 0 ml Balance 300 ml TAHIRA PETERSON DO Dec 11, 2020 14:33
--- NOTE | 2020-12-11 15:49 | DS.PDOC ---
Discharge Summary General Date of Admission Dec 10, 2020 at 18:08 Date of Discharge 12/11/20 Discharge Summary PROCEDURES PERFORMED DURING STAY: [None]. ADMITTING DIAGNOSES: Acute psychosis/amphetamine abuse Hyperkalemia DISCHARGE DIAGNOSES: Acute psychosis/amphetamine abuse Hyperkalemia COMPLICATIONS/CHIEF COMPLAINT: Acute Psychosis,Amphetamine Abuse,Hyperkalemia. HISTORY OF PRESENT ILLNESS: Patient 25 years old male who was brought by police to the hospital. Patient developed acute psychosis secondary to amphetamines. The police report stated that he threatened to kill his mom. When I saw patient he was acutely psychotic he did not let me examine him. Patient refused any IV medications and he did not let us to do EKG. He stated he would rather jump off the bridge rather receive any IV medications. In ER CBC shows white blood count of 9.6, potassium 6.2, creatinine 1.1, amphetamines in the urine. Patient afebrile. Poison Control Center was contacted by me, they recommended monitor EKG, sedation with benzodiazepines. HOSPITAL COURSE: Patient left the hospital AGAINST MEDICAL ADVICE. The police pickup order placed DISCHARGE MEDICATIONS: Please see below. ALLERGIES: Please see below. PHYSICAL EXAMINATION ON DISCHARGE: VITAL SIGNS: Please see below. GENERAL: HEENT: NECK: CARDIOVASCULAR EXAMINATION: RESPIRATORY EXAMINATION: ABDOMINAL EXAMINATION: EXTREMITIES: SKIN: NEUROLOGICAL EXAMINATION: PSYCHIATRIC EXAMINATION: LABORATORY DATA: Please see below. IMAGING: PROGNOSIS: ACTIVITY: [As tolerated]. DIET: DISCHARGE PLAN: DISPOSITION: . DISCHARGE INSTRUCTIONS: 1. . ITEMS TO FOLLOWUP ON ON OUTPATIENT: 1. . DISCHARGE CONDITION: [Stable]. TIME SPENT ON DISCHARGE: minutes. Vital Signs/I&Os Vital Signs Date Time Temp Pulse Resp B/P (MAP) Pulse Ox O2 Delivery O2 Flow Rate FiO2 12/11/20 06:00 97.8 58 18 115/58 (77) 99 Room Air I&O- Last 24 Hours up to 6 AM 12/11/20 05:59 Intake Total 300 ml Output Total 0 ml Balance 300 ml Laboratory Data Labs 24H Laboratory Tests 2 12/10/20 17:40: Anion Gap 5L, Glomerular Filtration Rate > 60.0, Calcium Level 9.5, Total Creatine Kinase 148 12/10/20 19:03: Coronavirus (COVID-19)(PCR) NEGATIVE, Influenza Type A (RT-PCR) NEGATIVE, Influenza Type B (RT-PCR) NEGATIVE, Respiratory Syncytial Virus (PCR) NEGATIVE 12/10/20 22:00: Anion Gap 6L, Glomerular Filtration Rate > 60.0, Calcium Level 8.7 12/11/20 02:10: Anion Gap 4L, Glomerular Filtration Rate > 60.0, Calcium Level 8.5 12/11/20 05:37: Nucleated Red Blood Cells % (auto) 0.0, Anion Gap 4L, Glomerular Filtration Rate > 60.0, Calcium Level 8.6, Magnesium Level 2.0, Total Bilirubin 0.4, Aspartate Amino Transf (AST/SGOT) 8, Alanine Aminotransferase (ALT/SGPT) 14, Alkaline Phosphatase 58, Total Protein 6.4#, Albumin 3.5#, Albumin/Globulin Ratio 1.2 CBC/BMP Laboratory Tests 12/10/20 17:40 12/10/20 22:00 12/11/20 02:10 12/11/20 05:37 Discharge Medications No Active Prescriptions or Reported Meds Allergies Coded Allergies: No Known Allergies (Unverified , 03/05/19) TAHIRA PETERSON DO Dec 11, 2020 15:49
--- NOTE | 2020-12-11 16:13 | ECGEPIP ---
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 Electronically Signed on 12-11-2020 16:13:10 EDT by Jose J Brady
--- NOTE | 2020-12-11 16:14 | ECGEPIP ---
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 Electronically Signed on 12-11-2020 16:14:19 EDT by Jose J Brady
== END 2020-12-11 15:45 | disposition left against medical advice (07) | DRG 770 ==
LOC: M ED 14:17 → M ED INP 18:08 → ENRESERV 20:45 → M MSPAV 21:25
PROVIDERS: ADMIT Internal Medicine; ATTEND Internal Medicine
DX: F15.159 Other stimulant abuse with stimulant-induced psychotic disorder, unspecified (principal); R45.851 Suicidal ideations; E87.5 Hyperkalemia

== ENCOUNTER 2020-12-11 16:27 | Emergency (ER) | payer MEDICAID, OTHER ==
[~2020-12-11] VITALS: Ht 167.6 cm; Wt 70.9 kg
[2020-12-11 18:28] VITALS: BP 140/74
== END 2020-12-11 18:30 | disposition home or self-care (01) ==
LOC: M ED 16:27
DX: F43.0 Acute stress reaction (principal); F19.10 Other psychoactive substance abuse, uncomplicated; E87.5 Hyperkalemia; F17.210 Nicotine dependence, cigarettes, uncomplicated

== ENCOUNTER 2021-04-07 17:00 | Observation (INO) | payer MEDICAID, OTHER ==
[~2021-04-07] VITALS: Ht 165.1 cm; Wt 70.5 kg
[2021-04-07 19:02] LABS: HEMATOCRIT 45.7 % (42.0-52.0); HEMOGLOBIN 14.6 g/dl (13.5-17.5); MEAN CORPUSCULAR HEMOGLOBIN 28.6 pg (27.0-33.0); MEAN CORPUSCULAR HGB CONC 31.9 g/dl (32.0-36.5); MEAN CORPUSCULAR VOLUME 89.4 fl (80.0-96.0); PLATELET COUNT, AUTOMATED 233 10^3/uL (150-450); RED BLOOD COUNT 5.11 10^6/uL (4.30-6.10); WHITE BLOOD COUNT 11.1 10^3/uL (4.0-10.0)
[2021-04-07 19:31] LABS: RSV AMPLIFICATION NEGATIVE (NEGATIVE)
[2021-04-07 19:54] LABS: ACETAMINOPHEN LEVEL < 2.0 UG/ML (10.0-30.0); ALBUMIN 4.1 GM/DL (3.2-5.2); ALT/SGPT 19 U/L (12-78); BILIRUBIN,DIRECT 0.2 MG/DL (0.0-0.2); BILIRUBIN,TOTAL 0.5 MG/DL (0.2-1.0); BLOOD UREA NITROGEN 22 MG/DL (7-18); CALCIUM LEVEL 9.4 MG/DL (8.5-10.1); CARBON DIOXIDE LEVEL 22 MEQ/L (21-32); CHLORIDE LEVEL 112 MEQ/L (98-107); CREATININE FOR GFR 1.09 MG/DL (0.70-1.30); ETHYL ALCOHOL (ETHANOL) < 0.003 % (0.000-0.010); GLOMERULAR FILTRATION RATE > 60.0 (>60); GLUCOSE, FASTING 79 MG/DL (70-100); POTASSIUM SERUM 5.5 MEQ/L (3.5-5.1); SALICYLATE LEVEL < 1.7 MG/DL (5.0-30.0); SODIUM LEVEL 141 MEQ/L (136-145); TOTAL PROTEIN 7.3 GM/DL (6.4-8.2)
[2021-04-07] MEDS ORDERED: HOME MED LIST COMPLETE! XX SCH (19:55)
[2021-04-07] MEDS ORDERED: CALCIUM GLUCONATE 1,000 MG in D5W MINI-BAG PLUS 100 ML IV ONE (20:25)
[2021-04-07] MEDS ORDERED: NS 1,000 ML IV ONE (20:25)
[2021-04-07] MEDS ORDERED: DEXTROSE 50% 50 ML SYRINGE IV STA (20:26)
[2021-04-07] MEDS ORDERED: HumuLIN R (REGULAR) INSULIN (NovoLIN R) **100U/ML** PER UNIT IV ONE (20:30)
[2021-04-07] MEDS ORDERED: SOD POLYSTYRENE SULFONATE SUSP 15 GM/60 ML UD PO ONE (20:30)
[2021-04-07] MEDS ORDERED: MIDAZOLAM 5MG/ML 1ML VIAL (J2250 PER 1MG) IM ONE (21:05)
[2021-04-07] MEDS ORDERED: MIDAZOLAM INJ 2MG/2ML VIAL (J2250 PER 1MG) IV STA (21:45)
[2021-04-07] MEDS ORDERED: ACETAMINOPHEN TAB 650MG DOSE (2X325MG) PO PRN (22:30)
[2021-04-07] MEDS ORDERED: LORazepam 2 MG/ML VIAL IV SCH (22:30)
[2021-04-07] MEDS ORDERED: MOM 30ML SUSPENSION UDC PO PRN (22:30)
[2021-04-07] MEDS ORDERED: MAALOX 30 ML SUSP *UDC PO PRN (22:30)
[2021-04-07] MEDS ORDERED: LORazepam 2 MG TAB PO PRN (22:45)
[2021-04-08 00:14] LABS: BLOOD UREA NITROGEN 22 MG/DL (7-18); CALCIUM LEVEL 8.8 MG/DL (8.5-10.1); CARBON DIOXIDE LEVEL 23 MEQ/L (21-32); CHLORIDE LEVEL 114 MEQ/L (98-107); CREATININE FOR GFR 1.19 MG/DL (0.70-1.30); GLOMERULAR FILTRATION RATE > 60.0 (>60); GLUCOSE, FASTING 76 MG/DL (70-100); POTASSIUM SERUM 5.1 MEQ/L (3.5-5.1); SODIUM LEVEL 142 MEQ/L (136-145)
[2021-04-08] MEDS ORDERED: LORazepam 2 MG/ML VIAL IV PRN (00:25)
[2021-04-08] MEDS ORDERED: OLANZapine ORAL DISINTEGRATING TAB 5MG PO PRN (08:30)
[2021-04-08] MEDS ORDERED: OLANZapine INTRAMUSCULAR 10MG VIAL IM PRN (08:35)
[2021-04-08] MEDS ORDERED: diphenhydrAMINE 50MG/ML VIAL (J1200) IM PRN (08:40)
[2021-04-08] MEDS ORDERED: HALOPERIDOL 5MG/ML VIAL (J1630 PER 1) IM PRN (08:40)
[2021-04-08] MEDS: ENOXAPARIN 40MG/0.4ML SYRINGE (J1650 PER 10MG) SC SCH (09:00)
[2021-04-08] MEDS: THIAMINE 100 MG TAB PO SCH ×2 (09:00→21:00)
[2021-04-08] MEDS: MULTIVITAMINS/MINERALS THERAP 1 TAB PO SCH (09:00)
[2021-04-08] MEDS: FOLIC ACID 1 MG TAB PO SCH (09:00)
[2021-04-08 15:24] LABS: BASO # 0.1 10^3/uL (0.0-0.2); BASO % 0.7 % (0.0-1.0); EOS # 0.3 10^3/uL (0.0-0.5); EOS % 3.7 % (0.0-3.0); HEMATOCRIT 45.7 % (42.0-52.0); HEMOGLOBIN 14.4 g/dl (13.5-17.5); LYMPH # 2.5 10^3/uL (1.5-5.0); LYMPH % 33.1 % (24.0-44.0); MEAN CORPUSCULAR HGB CONC 31.5 g/dl (32.0-36.5); MONO % 12.5 % (2.0-8.0); NEUTROPHILS # 3.8 10^3/uL (1.5-8.5); NEUTROPHILS % 49.7 % (36.0-66.0); PLATELET COUNT, AUTOMATED 226 10^3/uL (150-450); RED BLOOD COUNT 4.97 10^6/uL (4.30-6.10); WHITE BLOOD COUNT 7.7 10^3/uL (4.0-10.0)
[2021-04-08 15:45] LABS: ALBUMIN 3.5 GM/DL (3.2-5.2); ALT/SGPT 18 U/L (12-78); BILIRUBIN,TOTAL 0.4 MG/DL (0.2-1.0); BLOOD UREA NITROGEN 15 MG/DL (7-18); CARBON DIOXIDE LEVEL 26 MEQ/L (21-32); CHLORIDE LEVEL 112 MEQ/L (98-107); CREATININE FOR GFR 1.07 MG/DL (0.70-1.30); GLOMERULAR FILTRATION RATE > 60.0 (>60); GLUCOSE, FASTING 87 MG/DL (70-100); MAGNESIUM LEVEL 2.2 MG/DL (1.8-2.4); POTASSIUM SERUM 5.7 MEQ/L (3.5-5.1); SODIUM LEVEL 142 MEQ/L (136-145); TOTAL PROTEIN 6.5 GM/DL (6.4-8.2)
[2021-04-08] MEDS ORDERED: SOD POLYSTYRENE SULFONATE SUSP 15 GM/60 ML UD PO ONE (19:15)
[2021-04-09] MEDS: ENOXAPARIN 40MG/0.4ML SYRINGE (J1650 PER 10MG) SC SCH (08:58)
[2021-04-09] MEDS: FOLIC ACID 1 MG TAB PO SCH (08:58)
[2021-04-09] MEDS: THIAMINE 100 MG TAB PO SCH (08:58)
[2021-04-09] MEDS: MULTIVITAMINS/MINERALS THERAP 1 TAB PO SCH (08:58)
[2021-04-09] MEDS ORDERED: PALIPERIDONE 3 MG ER TAB (INVEGA) PO SCH (09:00)
[2021-04-09] MEDS ORDERED: DIVALPROEX 250 MG TAB PO SCH (09:00)
[2021-04-09 10:12] LABS: BLOOD UREA NITROGEN 15 MG/DL (7-18); CALCIUM LEVEL 9.2 MG/DL (8.5-10.1); CARBON DIOXIDE LEVEL 24 MEQ/L (21-32); CHLORIDE LEVEL 117 MEQ/L (98-107); CREATININE FOR GFR 0.87 MG/DL (0.70-1.30); GLOMERULAR FILTRATION RATE > 60.0 (>60); GLUCOSE, FASTING 84 MG/DL (70-100); SODIUM LEVEL 143 MEQ/L (136-145)
[2021-04-09] MEDS ORDERED: NICOTINE 21MG/24HR 1 EA TRANSDERMAL TD PRN (13:10)
[2021-04-09] MEDS ORDERED: OLANZapine ORAL DISINTEGRATING TAB 5MG PO PRN (13:10)
[2021-04-09] MEDS ORDERED: traZODone 50 MG TAB PO PRN (13:10)
[2021-04-09] MEDS ORDERED: ACETAMINOPHEN TAB 650MG DOSE (2X325MG) PO PRN (13:10)
[2021-04-09] MEDS ORDERED: MAALOX 30 ML SUSP *UDC PO PRN (13:10)
[2021-04-09] MEDS ORDERED: MOM 30ML SUSPENSION UDC PO PRN (13:10)
[2021-04-09 15:10] VITALS: BP 132/59
== END 2021-04-09 15:12 ==
LOC: M ED 17:00 → M ED INP 22:28
PROVIDERS: ADMIT Family Medicine; ATTEND Family Medicine
DX: F29 Unspecified psychosis not due to a substance or known physiological condition (principal); E87.5 Hyperkalemia; F19.959 Other psychoactive substance use, unspecified with psychoactive substance-induced psychotic disorder, unspecified; F17.218 Nicotine dependence, cigarettes, with other nicotine-induced disorders
CPT/HCPCS: 36415; 70450; 80048; 80053; 80076; 80143; 82077; 83735; 84443; 85025; 85027; 87631; 93005; 93041; 94760; 96361; 96374; 96375; 99285; J0610; J2250

== ENCOUNTER 2021-04-09 13:39 | Inpatient (IN) | payer MEDICAID, OTHER ==
[~2021-04-09] VITALS: Ht 165.1 cm; Wt 70.7 kg
[2021-04-09] MEDS ORDERED: ACETAMINOPHEN TAB 650MG DOSE (2X325MG) PO PRN (13:50)
[2021-04-09] MEDS ORDERED: MOM 30ML SUSPENSION UDC PO PRN (13:50)
[2021-04-09] MEDS ORDERED: OLANZapine ORAL DISINTEGRATING TAB 5MG PO PRN (13:50)
[2021-04-09 15:54] VITALS: BP 124/63
[2021-04-09 18:00] VITALS: BP 154/83
[2021-04-09] MEDS: PALIPERIDONE 3 MG ER TAB (INVEGA) PO SCH (20:49)
[2021-04-09] MEDS: DIVALPROEX 250 MG TAB PO SCH (20:50)
[2021-04-10 06:12] VITALS: BP 119/63
[2021-04-10] MEDS ORDERED: INFLUENZA QUADRIVALENT PF VACCINE 0.5ML SYRINGE IM ONE (09:00)
[2021-04-10] MEDS: PALIPERIDONE 3 MG ER TAB (INVEGA) PO SCH ×2 (09:36→20:19)
[2021-04-10] MEDS: DIVALPROEX 250 MG TAB PO SCH ×2 (09:37→20:19)
[2021-04-10] MEDS: NICOTINE 21MG/24HR 1 EA TRANSDERMAL TD PRN (11:39)
[2021-04-10 18:05] VITALS: BP 143/82
[2021-04-10] MEDS: traZODone 50 MG TAB PO PRN (20:19)
[2021-04-11 06:23] VITALS: BP 126/81
[2021-04-11 08:36] LABS: CHOLESTEROL RISK RATIO 2.386 (<5)
[2021-04-11] MEDS: PALIPERIDONE 3 MG ER TAB (INVEGA) PO SCH (09:36)
[2021-04-11] MEDS: DIVALPROEX 250 MG TAB PO SCH ×2 (09:36→20:27)
[2021-04-11] MEDS: NICOTINE 21MG/24HR 1 EA TRANSDERMAL TD PRN (14:40)
[2021-04-11 17:00] VITALS: BP 136/92
[2021-04-11] MEDS: traZODone 50 MG TAB PO PRN (20:27)
[2021-04-11] MEDS ORDERED: PALIPERIDONE 3 MG ER TAB (INVEGA) PO SCH (21:00)
[2021-04-11] MEDS ORDERED: DIVALPROEX 500 MG TAB PO SCH (21:00)
[2021-04-11] MEDS: MAALOX 30 ML SUSP *UDC PO PRN (22:03)
[2021-04-12 06:11] VITALS: BP 140/74
[2021-04-12] MEDS: DIVALPROEX 250 MG TAB PO SCH ×2 (10:15→20:06)
[2021-04-12] MEDS: MAALOX 30 ML SUSP *UDC PO PRN ×2 (11:58→17:05)
[2021-04-12] MEDS: NICOTINE 21MG/24HR 1 EA TRANSDERMAL TD PRN (12:00)
[2021-04-12 18:00] VITALS: BP 138/69
[2021-04-12] MEDS: traZODone 50 MG TAB PO PRN (20:06)
[2021-04-12] MEDS ORDERED: PALIPERIDONE 3 MG ER TAB (INVEGA) PO SCH (21:00)
[2021-04-13 06:23] VITALS: BP 112/55
[2021-04-13] MEDS: DIVALPROEX 250 MG TAB PO SCH (09:05)
[2021-04-13] MEDS ORDERED: TRAZ-252 PO (09:06)
[2021-04-13] MEDS ORDERED: DEPA250T32 PO (09:06)
[2021-04-13] MEDS ORDERED: NICO21PAT TD (09:06)
[2021-04-13] MEDS ORDERED: PALI1TAB3 PO (09:06)
== END 2021-04-13 13:30 | disposition home or self-care (01) | DRG 751 ==
LOC: M PSY 15:19
PROVIDERS: ADMIT Psychiatry & Neurology Psychiatry; ATTEND Student in an Organized Health Care Education/Training Program
DX: F29 Unspecified psychosis not due to a substance or known physiological condition (principal); E87.5 Hyperkalemia; F17.200 Nicotine dependence, unspecified, uncomplicated; B18.2 Chronic viral hepatitis C; F15.90 Other stimulant use, unspecified, uncomplicated; F60.89 Other specific personality disorders

== ENCOUNTER → 2022-05-16 | Outpatient (REF) | payer OTHER, MEDICAID ==
[~2022-05-16] MED LIST changes: +DEPA250T32 PO; +NICO21PAT TD; +PALI1TAB3 PO; +TRAZ-252 PO
[2022-05-16 13:40] LABS: BASO # 0.1 10^3/uL (0.0-0.2); EOS # 0.3 10^3/uL (0.0-0.5); EOS % 4.3 % (0.0-3.0); HEMATOCRIT 48.4 % (42.0-52.0); LYMPH # 2.5 10^3/uL (1.5-5.0); LYMPH % 39.4 % (24.0-44.0); MEAN CORPUSCULAR HEMOGLOBIN 28.8 pg (27.0-33.0); MEAN CORPUSCULAR VOLUME 92.9 fl (80.0-96.0); MONO # 0.6 10^3/uL (0.0-0.8); MONO % 10.3 % (2.0-8.0); NEUTROPHILS # 2.8 10^3/uL (1.5-8.5); NEUTROPHILS % 44.7 % (36.0-66.0); PLATELET COUNT, AUTOMATED 202 10^3/uL (150-450); RED BLOOD COUNT 5.21 10^6/uL (4.30-6.10); WHITE BLOOD COUNT 6.2 10^3/uL (4.0-10.0)
[2022-05-16 13:55] LABS: MAGNESIUM LEVEL 1.9 MG/DL (1.8-2.4)
[2022-05-16 13:57] LABS: TOTAL 25(OH) VITAMIN D 21.7 NG/ML (20.0-100.0)
[2022-05-16 13:58] LABS: FREE T4 1.15 NG/DL (0.89-1.76); THYROID STIMULATING HORMONE 3.245 uIU/ML (0.55-4.78)
[2022-05-16 13:59] LABS: HEMOGLOBIN A1c 4.9 % (4.0-6.0)
[2022-05-16 14:23] LABS: HIV 1&2 SCREEN CENTAUR NEGATIVE (NEGATIVE)
[2022-05-16 15:58] LABS: ALBUMIN 4.3 G/DL (3.2-5.2); ALKALINE PHOSPHATASE 64 U/L (46-116); ALT/SGPT 15 U/L (7.0-40); AST/SGOT 14 U/L (<34); BILIRUBIN,TOTAL 0.4 MG/DL (0.3-1.2); BLOOD UREA NITROGEN 21 MG/DL (9-23); CALCIUM LEVEL 9.5 MG/DL (8.5-10.1); CARBON DIOXIDE LEVEL 23 MMOL/L (20-31); CHLORIDE LEVEL 109 MMOL/L (98-107); CHOLESTEROL LEVEL 142 MG/DL (<200); CHOLESTEROL RISK RATIO 2.43 (<5); CREATININE FOR GFR 1.11 MG/DL (0.70-1.30); GLOMERULAR FILTRATION RATE > 60.0 (>60); GLUCOSE, FASTING 77 MG/DL (60-100); HDL CHOLESTEROL 58.2 MG/DL (>40); NON-HDL-C 84 MG/DL; POTASSIUM SERUM 6.5 MMOL/L (3.5-5.1); SODIUM LEVEL 140 MMOL/L (136-145); TOTAL PROTEIN 7.3 G/DL (5.7-8.2); TRIGLYCERIDES LEVEL 124 MG/DL (<150)
[2022-05-16 16:03] LABS: HEPATITIS C VIRUS ABY INDEX > 11.0 INDEX (<0.8)
== END ==
LOC: M LAB REF 12:35
PROVIDERS: ATTEND Nurse Practitioner Family
DX: Z13.228 Encounter for screening for other metabolic disorders (principal); Z11.4 Encounter for screening for human immunodeficiency virus [HIV]

== ENCOUNTER 2022-05-18 12:56 | Emergency (ER) | payer OTHER, MEDICAID ==
[~2022-05-18] VITALS: Ht 165.1 cm; Wt 96.0 kg
[2022-05-18 15:03] LABS: BASO # 0.1 10^3/uL (0.0-0.2); EOS # 0.2 10^3/uL (0.0-0.5); EOS % 3.1 % (0.0-3.0); HEMATOCRIT 46.3 % (42.0-52.0); HEMOGLOBIN 14.5 g/dl (13.5-17.5); LYMPH # 1.7 10^3/uL (1.5-5.0); LYMPH % 30.1 % (24.0-44.0); MEAN CORPUSCULAR HEMOGLOBIN 28.7 pg (27.0-33.0); MEAN CORPUSCULAR HGB CONC 31.3 g/dl (32.0-36.5); MEAN CORPUSCULAR VOLUME 91.7 fl (80.0-96.0); MONO # 0.9 10^3/uL (0.0-0.8); MONO % 14.8 % (2.0-8.0); NEUTROPHILS # 2.9 10^3/uL (1.5-8.5); NEUTROPHILS % 50.7 % (36.0-66.0); PLATELET COUNT, AUTOMATED 196 10^3/uL (150-450); RED BLOOD COUNT 5.05 10^6/uL (4.30-6.10); WHITE BLOOD COUNT 5.7 10^3/uL (4.0-10.0)
[2022-05-18 15:26] LABS: CALCIUM LEVEL 9.3 MG/DL (8.5-10.1); CREATININE FOR GFR 1.56 MG/DL (0.70-1.30); GLOMERULAR FILTRATION RATE 56.7 (>60); POTASSIUM SERUM 5.9 MMOL/L (3.5-5.1)
[2022-05-18 16:57] VITALS: BP 125/71
== END 2022-05-18 16:59 | disposition home or self-care (01) ==
LOC: M ED 12:56
DX: E87.5 Hyperkalemia (principal); R94.4 Abnormal results of kidney function studies; R94.31 Abnormal electrocardiogram [ECG] [EKG]; K21.9 Gastro-esophageal reflux disease without esophagitis; F31.9 Bipolar disorder, unspecified; F17.200 Nicotine dependence, unspecified, uncomplicated; Z79.899 Other long term (current) drug therapy; Z98.890 Other specified postprocedural states

== ENCOUNTER 2022-05-28 20:10 | Emergency (ER) | payer MEDICAID, OTHER ==
[~2022-05-28] VITALS: Ht 165.1 cm; Wt 75.8 kg
[2022-05-29 00:52] LABS: BASO % 0.4 % (0.0-1.0); EOS # 0.1 10^3/uL (0.0-0.5); EOS % 0.6 % (0.0-3.0); HEMATOCRIT 50.3 % (42.0-52.0); HEMOGLOBIN 15.9 g/dl (13.5-17.5); LYMPH # 2.3 10^3/uL (1.5-5.0); LYMPH % 24.1 % (24.0-44.0); MEAN CORPUSCULAR HEMOGLOBIN 28.7 pg (27.0-33.0); MEAN CORPUSCULAR HGB CONC 31.6 g/dl (32.0-36.5); MEAN CORPUSCULAR VOLUME 90.8 fl (80.0-96.0); NEUTROPHILS # 6.2 10^3/uL (1.5-8.5); NEUTROPHILS % 64.5 % (36.0-66.0); PLATELET COUNT, AUTOMATED 252 10^3/uL (150-450); RED BLOOD COUNT 5.54 10^6/uL (4.30-6.10); WHITE BLOOD COUNT 9.7 10^3/uL (4.0-10.0)
[2022-05-29 01:27] LABS: ALBUMIN 4.4 G/DL (3.2-5.2); ALKALINE PHOSPHATASE 79 U/L (46-116); ALT/SGPT 16 U/L (7.0-40); AST/SGOT 16 U/L (<34); BILIRUBIN,DIRECT 0.2 MG/DL (<0.4); BILIRUBIN,TOTAL 0.5 MG/DL (0.3-1.2); BLOOD UREA NITROGEN 18 MG/DL (9-23); CALCIUM LEVEL 9.6 MG/DL (8.5-10.1); CARBON DIOXIDE LEVEL 21 MMOL/L (20-31); CHLORIDE LEVEL 108 MMOL/L (98-107); CREATININE FOR GFR 1.24 MG/DL (0.70-1.30); GLOMERULAR FILTRATION RATE > 60.0 (>60); GLUCOSE, FASTING 92 MG/DL (60-100); POTASSIUM SERUM 6.3 MMOL/L (3.5-5.1); SODIUM LEVEL 138 MMOL/L (136-145); TOTAL PROTEIN 7.9 G/DL (5.7-8.2)
[2022-05-29] MEDS ORDERED: CALCIUM GLUCONATE 1,000MG/10ML VIAL (100MG/ML) IV ONE (03:25)
[2022-05-29] MEDS ORDERED: NS 1,000 ML IV ONE (03:25)
[2022-05-29] MEDS ORDERED: DEXTROSE 50% 50ML SYRINGE IV ONE (03:25)
[2022-05-29] MEDS ORDERED: HumuLIN R (REGULAR) INSULIN (NovoLIN R) **100U/ML** PER UNIT IV ONE (03:25)
[2022-05-29] MEDS ORDERED: PATIROMER SORBITEX CALCIUM 8.4 GM POWDER PACKET (VELTASSA) PO ONE (03:25)
[2022-05-29 04:26] LABS: APPEARANCE, URINE MANUAL CLEAR (CLEAR); COLOR, URINE MANUAL YELLOW (YELLOW)
[2022-05-29 04:27] LABS: BILIRUBIN, URINE MANUAL NEGATIVE (NEGATIVE); BLOOD URINE MANUAL NEGATIVE (NEGATIVE); GLUCOSE, URINE (UA) MANUAL 2+(250 MG/DL) mg/dL (NEGATIVE); KETONE, URINE MANUAL 1+ mg/dL (NEGATIVE); LEUKOCYTE ESTERASE, URINE MAN NEGATIVE (NEGATIVE); NITRITE, URINE MANUAL NEGATIVE (NEGATIVE); PROTEIN, URINE MANUAL NEGATIVE (NEGATIVE); UROBILINOGEN, URINE MANUAL NORMAL (NORMAL)
[2022-05-29 04:28] LABS: MYOGLOBIN SCREEN, URINE NEGATIVE (NEGATIVE)
[2022-05-29 04:51] LABS: AMPHETAMINES LEVEL URINE NEGATIVE (NEGATIVE); BARBITURATES URINE NEGATIVE (NEGATIVE); BENZODIAZEPINES URINE NEGATIVE (NEGATIVE); METHADONE URINE NEGATIVE (NEGATIVE); OPIATES URINE NEGATIVE (NEGATIVE)
[2022-05-29 04:52] LABS: PHENCYCLIDINE URINE NEGATIVE (NEGATIVE)
[2022-05-29 04:53] LABS: CANNABINOIDS URINE POSITIVE (NEGATIVE); COCAINE METABOLITE URINE POSITIVE (NEGATIVE)
[2022-05-29 06:52] LABS: BLOOD UREA NITROGEN 19 MG/DL (9-23); CALCIUM LEVEL 8.9 MG/DL (8.5-10.1); CARBON DIOXIDE LEVEL 22 MMOL/L (20-31); CHLORIDE LEVEL 108 MMOL/L (98-107); CREATININE FOR GFR 1.17 MG/DL (0.70-1.30); GLOMERULAR FILTRATION RATE > 60.0 (>60); GLUCOSE, FASTING 128 MG/DL (60-100); POTASSIUM SERUM 4.5 MMOL/L (3.5-5.1); SODIUM LEVEL 139 MMOL/L (136-145)
[2022-05-29] MEDS ORDERED: VELT1POW PO (07:33)
[2022-05-29 08:02] VITALS: BP 131/81
== END 2022-05-29 08:16 | disposition home or self-care (01) ==
LOC: M ED 20:10
DX: E78.5 Hyperlipidemia, unspecified (principal); R00.0 Tachycardia, unspecified; K21.9 Gastro-esophageal reflux disease without esophagitis; F17.200 Nicotine dependence, unspecified, uncomplicated; F10.10 Alcohol abuse, uncomplicated; Z79.83 Long term (current) use of bisphosphonates; Z79.899 Other long term (current) drug therapy
CPT/HCPCS: 80048; 80076; 80307; 81002; 82550; 84133; 85025; 93005; 96361; 96374; 96375; 99284; J0610; J1815

== ENCOUNTER 2022-09-04 08:31 | Emergency (ER) | payer MEDICAID ==
[~2022-09-04] VITALS: Ht 167.6 cm; Wt 65.5 kg
[~2022-09-04 08:31] MED LIST changes: +VELT1POW PO
[2022-09-04] MEDS ORDERED: NS 1,000 ML IV ONE ×2 (08:45→10:40)
[2022-09-04] MEDS ORDERED: BOOSTRIX VACCINE (TETANUS/DIPHTH/ACEL. PERTUSSIS) 0.5ML SYR IM.IMMUN ONE (08:45)
[2022-09-04] MEDS ORDERED: LORazepam 2 MG/ML 1ML VIAL IV STA (08:45)
[2022-09-04 09:11] LABS: HEMATOCRIT 42.7 % (42.0-52.0); HEMOGLOBIN 13.7 g/dl (13.5-17.5); MEAN CORPUSCULAR HEMOGLOBIN 28.5 pg (27.0-33.0); MEAN CORPUSCULAR HGB CONC 32.1 g/dl (32.0-36.5); MEAN CORPUSCULAR VOLUME 88.8 fl (80.0-96.0); PLATELET COUNT, AUTOMATED 257 10^3/uL (150-450); RED BLOOD COUNT 4.81 10^6/uL (4.30-6.10); WHITE BLOOD COUNT 10.7 10^3/uL (4.0-10.0)
[2022-09-04 09:42] LABS: ETHYL ALCOHOL (ETHANOL) < 0.003 % (0.000-0.010)
[2022-09-04 09:43] LABS: ACETAMINOPHEN LEVEL < 2.0 UG/ML (10.0-20.0); ALBUMIN 4.6 G/DL (3.2-5.2); ALKALINE PHOSPHATASE 75 U/L (46-116); ALT/SGPT 44 U/L (7.0-40); AST/SGOT 53 U/L (<34); BILIRUBIN,DIRECT 0.3 MG/DL (<0.4); BILIRUBIN,TOTAL 0.9 MG/DL (0.3-1.2); BLOOD UREA NITROGEN 45 MG/DL (9-23); CALCIUM LEVEL 9.1 MG/DL (8.5-10.1); CARBON DIOXIDE LEVEL 21 MMOL/L (20-31); CHLORIDE LEVEL 106 MMOL/L (98-107); CREATININE FOR GFR 1.48 MG/DL (0.70-1.30); GLOMERULAR FILTRATION RATE 59.8 (>60); GLUCOSE, FASTING 55 MG/DL (60-100); POTASSIUM SERUM 4.8 MMOL/L (3.5-5.1); SALICYLATE LEVEL < 3.0 MG/DL (<30); SODIUM LEVEL 138 MMOL/L (136-145); TOTAL PROTEIN 7.4 G/DL (5.7-8.2)
[2022-09-04 09:45] LABS: THYROID STIMULATING HORMONE 2.565 uIU/ML (0.55-4.78)
[2022-09-04 09:59] LABS: CPK CREATINE PHOSPHOKINASE 1346 U/L (46-171)
[2022-09-04 15:37] LABS: AMPHETAMINES LEVEL URINE NEGATIVE (NEGATIVE); BARBITURATES URINE NEGATIVE (NEGATIVE); BENZODIAZEPINES URINE NEGATIVE (NEGATIVE); CANNABINOIDS URINE NEGATIVE (NEGATIVE); COCAINE METABOLITE URINE NEGATIVE (NEGATIVE); METHADONE URINE NEGATIVE (NEGATIVE); OPIATES URINE NEGATIVE (NEGATIVE); PHENCYCLIDINE URINE NEGATIVE (NEGATIVE)
[2022-09-04 15:40] LABS: BLOOD UREA NITROGEN 30 MG/DL (9-23); CALCIUM LEVEL 7.9 MG/DL (8.5-10.1); CARBON DIOXIDE LEVEL 23 MMOL/L (20-31); CHLORIDE LEVEL 113 MMOL/L (98-107); CREATININE FOR GFR 1.07 MG/DL (0.70-1.30); GLOMERULAR FILTRATION RATE > 60.0 (>60); GLUCOSE, FASTING 109 MG/DL (60-100); POTASSIUM SERUM 4.9 MMOL/L (3.5-5.1); SODIUM LEVEL 139 MMOL/L (136-145)
[2022-09-04 17:15] VITALS: BP 118/55
== END 2022-09-04 17:58 | disposition home or self-care (01) ==
LOC: M ED 08:31 → EDBD 08:31 → M ED 17:58
DX: F19.10 Other psychoactive substance abuse, uncomplicated (principal); F20.9 Schizophrenia, unspecified; Z86.19 Personal history of other infectious and parasitic diseases; F17.200 Nicotine dependence, unspecified, uncomplicated; Z79.899 Other long term (current) drug therapy
CPT/HCPCS: 36415; 80048; 80076; 80143; 80307; 82077; 82550; 84443; 85027; 90471; 90715; 96361; 96374; 99285; J2060

== ENCOUNTER 2023-02-22 04:18 | Emergency (ER) | payer MEDICAID ==
[~2023-02-22] VITALS: Ht 165.1 cm; Wt 66.1 kg
[2023-02-22 08:24] LABS: BLOOD UREA NITROGEN 40 MG/DL (9-23); CALCIUM LEVEL 9.3 MG/DL (8.5-10.1); CARBON DIOXIDE LEVEL 21 MMOL/L (20-31); CHLORIDE LEVEL 105 MMOL/L (98-107); CREATININE FOR GFR 1.46 MG/DL (0.70-1.30); GLOMERULAR FILTRATION RATE > 60.0 (>60); GLUCOSE, FASTING 104 MG/DL (60-100); POTASSIUM SERUM 5.3 MMOL/L (3.5-5.1); SODIUM LEVEL 137 MMOL/L (136-145)
[2023-02-22] MEDS ORDERED: PATIROMER SORBITEX CALCIUM 8.4 GM POWDER PACKET (VELTASSA) PO ONE (08:45)
[2023-02-22 09:24] VITALS: BP 135/79; TEMP 98; O2SAT 96
== END 2023-02-22 09:38 | disposition home or self-care (01) ==
LOC: M ED 04:18
DX: S62.23 Other fracture of base of first metacarpal bone (principal); Y04.2XXA Assault by strike against or bumped into by another person, initial encounter; E87.5 Hyperkalemia; N18.9 Chronic kidney disease, unspecified; K21.9 Gastro-esophageal reflux disease without esophagitis; F17.200 Nicotine dependence, unspecified, uncomplicated; F31.9 Bipolar disorder, unspecified; Z79.899 Other long term (current) drug therapy; Y92.410 Unspecified street and highway as the place of occurrence of the external cause; Y93.9 Activity, unspecified; Y99.9 Unspecified external cause status

== ENCOUNTER → 2023-03-10 | Outpatient (CLI) | payer MEDICAID | LOC: M SOG 10:46 | PROVIDERS: ATTEND Physician Assistant | DX: M79.641 Pain in right hand (principal); S62.231A Other displaced fracture of base of first metacarpal bone, right hand, initial encounter for closed fracture; X58.XXXA Exposure to other specified factors, initial encounter; Y92.9 Unspecified place or not applicable; Y93.9 Activity, unspecified; Y99.8 Other external cause status ==

== ENCOUNTER 2023-03-25 09:15 | Emergency (ER) | payer MEDICAID ==
[~2023-03-25] VITALS: Ht 165.1 cm; Wt 63.2 kg
[2023-03-25] MEDS ORDERED: LIDOCAINE W/EPINEPHRINE 1% 20ML VIAL SC ONE (12:30)
[2023-03-25 13:09] LABS: HEMATOCRIT 41.5 % (42.0-52.0); HEMOGLOBIN 13.5 g/dl (13.5-17.5); MEAN CORPUSCULAR HEMOGLOBIN 29.5 pg (27.0-33.0); MEAN CORPUSCULAR HGB CONC 32.5 g/dl (32.0-36.5); MEAN CORPUSCULAR VOLUME 90.6 fl (80.0-96.0); PLATELET COUNT, AUTOMATED 231 10^3/uL (150-450); RED BLOOD COUNT 4.58 10^6/uL (4.30-6.10); WHITE BLOOD COUNT 9.9 10^3/uL (4.0-10.0)
[2023-03-25 13:35] LABS: ETHYL ALCOHOL (ETHANOL) < 0.003 % (0.000-0.010)
[2023-03-25 13:37] LABS: ALBUMIN 3.8 G/DL (3.2-5.2); ALKALINE PHOSPHATASE 81 U/L (46-116); ALT/SGPT 18 U/L (7.0-40); AST/SGOT 20 U/L (<34); BILIRUBIN,DIRECT 0.1 MG/DL (<0.4); BILIRUBIN,TOTAL 0.3 MG/DL (0.3-1.2); BLOOD UREA NITROGEN 32 MG/DL (9-23); CALCIUM LEVEL 9.1 MG/DL (8.5-10.1); CARBON DIOXIDE LEVEL 26 MMOL/L (20-31); CHLORIDE LEVEL 107 MMOL/L (98-107); GLOMERULAR FILTRATION RATE > 60.0 (>60); GLUCOSE, FASTING 134 MG/DL (60-100); POTASSIUM SERUM 4.3 MMOL/L (3.5-5.1); SALICYLATE LEVEL < 3.0 MG/DL (<30); SODIUM LEVEL 143 MMOL/L (136-145); TOTAL PROTEIN 6.6 G/DL (5.7-8.2)
[2023-03-25 13:39] LABS: THYROID STIMULATING HORMONE 1.128 uIU/ML (0.55-4.78)
[2023-03-25 14:49] LABS: BARBITURATES URINE NEGATIVE (NEGATIVE); BENZODIAZEPINES URINE NEGATIVE (NEGATIVE); COCAINE METABOLITE URINE NEGATIVE (NEGATIVE); METHADONE URINE NEGATIVE (NEGATIVE); OPIATES URINE NEGATIVE (NEGATIVE); PHENCYCLIDINE URINE NEGATIVE (NEGATIVE)
[2023-03-25 14:50] LABS: CANNABINOIDS URINE NEGATIVE (NEGATIVE)
[2023-03-25 14:51] LABS: AMPHETAMINES LEVEL URINE POSITIVE (NEGATIVE)
[2023-03-25 16:12] VITALS: BP 131/68; TEMP 97.2; O2SAT 98
== END 2023-03-25 16:15 | disposition home or self-care (01) ==
LOC: M ED 09:15
DX: F29 Unspecified psychosis not due to a substance or known physiological condition (principal); K64.8 Other hemorrhoids; F15.10 Other stimulant abuse, uncomplicated; K21.9 Gastro-esophageal reflux disease without esophagitis; F31.9 Bipolar disorder, unspecified; B18.2 Chronic viral hepatitis C; F17.200 Nicotine dependence, unspecified, uncomplicated; Z79.899 Other long term (current) drug therapy

== ENCOUNTER → 2023-04-11 | Outpatient (CLI) | payer MEDICAID | LOC: M SOG 08:06 | PROVIDERS: ATTEND Physician Assistant | DX: M79.641 Pain in right hand (principal); Z53.9 Procedure and treatment not carried out, unspecified reason ==

== ENCOUNTER 2024-03-06 18:24 | Inpatient (IN) | payer MEDICAID, OTHER ==
[~2024-03-06] VITALS: Ht 162.6 cm; Wt 71.3 kg
[2024-03-06] MEDS ORDERED: SERO200T PO (18:33)
[2024-03-06] MEDS ORDERED: CLONI1TA PO (18:33)
[2024-03-06 20:19] LABS: BASO # 0.1 10^3/uL (0.0-0.2); BASO % 0.5 % (0.0-1.0); EOS # 0.3 10^3/uL (0.0-0.5); EOS % 2.7 % (0.0-3.0); HEMATOCRIT 41.3 % (42.0-52.0); HEMOGLOBIN 13.2 g/dl (13.5-17.5); LYMPH # 3.2 10^3/uL (1.5-5.0); LYMPH % 33.1 % (24.0-44.0); MEAN CORPUSCULAR HEMOGLOBIN 28.6 pg (27.0-33.0); MEAN CORPUSCULAR VOLUME 89.6 fl (80.0-96.0); NEUTROPHILS # 5.2 10^3/uL (1.5-8.5); NEUTROPHILS % 53.3 % (36.0-66.0); PLATELET COUNT, AUTOMATED 251 10^3/uL (150-450); RED BLOOD COUNT 4.61 10^6/uL (4.30-6.10); WHITE BLOOD COUNT 9.7 10^3/uL (4.0-10.0)
[2024-03-06 20:53] LABS: BLOOD UREA NITROGEN 27 MG/DL (9-23); CALCIUM LEVEL 9.4 MG/DL (8.5-10.1); CARBON DIOXIDE LEVEL 25 MMOL/L (20-31); CHLORIDE LEVEL 112 MMOL/L (98-107); CREATININE FOR GFR 1.27 MG/DL (0.70-1.30); GLOMERULAR FILTRATION RATE > 60.0 (>60); GLUCOSE, FASTING 91 MG/DL (60-100); MAGNESIUM LEVEL 1.8 MG/DL (1.8-2.4); POTASSIUM SERUM 5.4 MMOL/L (3.5-5.1); SODIUM LEVEL 142 MMOL/L (136-145)
[2024-03-06 20:55] LABS: FOLATE 9.81 NG/ML (>5.4); VITAMIN B12 LEVEL 463 PG/ML (211-911)
[2024-03-06] MEDS ORDERED: ACETAMINOPHEN 325 MG TAB PO PRN (23:10)
[2024-03-06] MEDS ORDERED: MAALOX 30 ML SUSP *UDC PO PRN (23:10)
[2024-03-06] MEDS: PATIROMER SORBITEX CALCIUM 8.4 GM POWDER PACKET (VELTASSA) PO ONE (23:30)
[2024-03-06 23:38] LABS: IONIZED CALCIUM 4.9 MG/DL (4.5-5.3)
[2024-03-06 23:39] LABS: VENOUS BASE EXCESS -4.2 (-2.0-2.0); VENOUS HCO3 21.4 MMOL/L (23.0-27.0); VENOUS O2 SATURATION 98.3 % (60.0-80.0); VENOUS PARTIAL PRESSURE CO2 41.5 mmHg (38.0-50.0); VENOUS PARTIAL PRESSURE O2 125.1 mmHg (30.0-50.0); VENOUS PH 7.331 UNITS (7.330-7.430); VENOUS TOTAL CO2 22.7 MMOL/L (24.0-28.0)
[2024-03-06] MEDS ORDERED: QUET100T2 PO (23:46)
[2024-03-06] MEDS ORDERED: HOME MED LIST COMPLETE! XX SCH (23:50)
[2024-03-07 00:06] LABS: ETHYL ALCOHOL (ETHANOL) < 0.003 % (0.000-0.010)
[2024-03-07 00:08] LABS: ALBUMIN 3.2 G/DL (3.2-5.2); ALKALINE PHOSPHATASE 77 U/L (40-129); ALT/SGPT 12 U/L (7.0-40); AST/SGOT < 8 U/L (<34); BILIRUBIN,DIRECT < 0.1 MG/DL (<0.4); BILIRUBIN,TOTAL 0.2 MG/DL (0.3-1.2); SALICYLATE LEVEL < 3.0 MG/DL (<30); TOTAL PROTEIN 6.2 G/DL (5.7-8.2)
[2024-03-07 00:17] LABS: AMPHETAMINES LEVEL URINE NEGATIVE (NEGATIVE); BARBITURATES URINE NEGATIVE (NEGATIVE); BENZODIAZEPINES URINE NEGATIVE (NEGATIVE); COCAINE METABOLITE URINE NEGATIVE (NEGATIVE); METHADONE URINE NEGATIVE (NEGATIVE); OPIATES URINE NEGATIVE (NEGATIVE); PHENCYCLIDINE URINE NEGATIVE (NEGATIVE)
[2024-03-07 00:18] LABS: CANNABINOIDS URINE NEGATIVE (NEGATIVE)
[2024-03-07 00:29] LABS: HEPATITIS B SURFACE ANTIGEN NEGATIVE (NEGATIVE)
[2024-03-07 00:31] LABS: INR 0.91; PROTHROMBIN TIME 12.6 SECONDS (12.5-14.5)
[2024-03-07 00:32] LABS: PARTIAL THROMBOPLASTIN TIME 27.9 SECONDS (24.8-34.2)
[2024-03-07 00:42] VITALS: BP 153/93; TEMP 97.2; O2SAT 96
[2024-03-07 00:42] LABS: HIV 1&2 SCREEN NEGATIVE (NEGATIVE)
[2024-03-07 00:49] LABS: HEPATITIS B CORE ANTIBODY IGM NEGATIVE (NEGATIVE)
[2024-03-07 01:57] LABS: HEPATITIS C VIRUS ABY INDEX > 11.00 INDEX (<0.8)
[2024-03-07 04:28] VITALS: BP 142/80; TEMP 97.7; O2SAT 98
[2024-03-07 05:50] LABS: HEMATOCRIT 42.8 % (42.0-52.0); HEMOGLOBIN 13.3 g/dl (13.5-17.5); MEAN CORPUSCULAR HEMOGLOBIN 28.7 pg (27.0-33.0); MEAN CORPUSCULAR HGB CONC 31.1 g/dl (32.0-36.5); MEAN CORPUSCULAR VOLUME 92.4 fl (80.0-96.0); PLATELET COUNT, AUTOMATED 233 10^3/uL (150-450); RED BLOOD COUNT 4.63 10^6/uL (4.30-6.10); WHITE BLOOD COUNT 8.5 10^3/uL (4.0-10.0)
[2024-03-07 06:22] LABS: ALKALINE PHOSPHATASE 66 U/L (40-129); ALT/SGPT 11 U/L (7.0-40); AST/SGOT < 8 U/L (<34); BILIRUBIN,TOTAL 0.2 MG/DL (0.3-1.2); BLOOD UREA NITROGEN 24 MG/DL (9-23); CALCIUM LEVEL 8.7 MG/DL (8.5-10.1); CARBON DIOXIDE LEVEL 22 MMOL/L (20-31); CHLORIDE LEVEL 112 MMOL/L (98-107); CREATININE FOR GFR 0.85 MG/DL (0.70-1.30); GLOMERULAR FILTRATION RATE > 60.0 (>60); GLUCOSE, FASTING 87 MG/DL (60-100); MAGNESIUM LEVEL 1.8 MG/DL (1.8-2.4); POTASSIUM SERUM 5.4 MMOL/L (3.5-5.1); SODIUM LEVEL 139 MMOL/L (136-145)
[2024-03-07 08:00] VITALS: BP 144/86; TEMP 97.3; O2SAT 97
[2024-03-07] MEDS: DOCUSATE SODIUM 100MG CAPSULE PO SCH (09:29)
[2024-03-07] MEDS: ENOXAPARIN 40MG/0.4ML SYRINGE (J1650 PER 10MG) SC SCH (09:29)
[2024-03-07] MEDS ORDERED: HOME MED LIST COMPLETE! XX SCH (10:25)
[2024-03-07 12:00] VITALS: BP 143/79; TEMP 97.7; O2SAT 98
[2024-03-07 16:00] VITALS: BP 144/78; TEMP 97.5; O2SAT 98
[2024-03-07] MEDS: FUROSEMIDE 40MG/4ML VIAL IV ONE (17:24)
[2024-03-07 20:03] VITALS: BP 142/81; TEMP 97.7; O2SAT 97
[2024-03-07] MEDS: QUEtiapine FUMARATE 100 MG TAB PO SCH (22:27)
[2024-03-08] VITALS: BP 142/82; TEMP 97.5; O2SAT 98
[2024-03-08 04:00] VITALS: BP 100/64; TEMP 97.7; O2SAT 98
[2024-03-08 06:02] LABS: BASO # 0.1 10^3/uL (0.0-0.2); BASO % 0.8 % (0.0-1.0); EOS # 0.3 10^3/uL (0.0-0.5); EOS % 4.3 % (0.0-3.0); HEMOGLOBIN 13.8 g/dl (13.5-17.5); LYMPH # 2.8 10^3/uL (1.5-5.0); LYMPH % 43.9 % (24.0-44.0); MEAN CORPUSCULAR HEMOGLOBIN 28.6 pg (27.0-33.0); MEAN CORPUSCULAR HGB CONC 31.4 g/dl (32.0-36.5); MEAN CORPUSCULAR VOLUME 91.1 fl (80.0-96.0); MONO # 0.7 10^3/uL (0.0-0.8); NEUTROPHILS # 2.5 10^3/uL (1.5-8.5); NEUTROPHILS % 39.7 % (36.0-66.0); PLATELET COUNT, AUTOMATED 242 10^3/uL (150-450); RED BLOOD COUNT 4.83 10^6/uL (4.30-6.10); WHITE BLOOD COUNT 6.4 10^3/uL (4.0-10.0)
[2024-03-08 06:27] LABS: BLOOD UREA NITROGEN 19 MG/DL (9-23); CALCIUM LEVEL 9.2 MG/DL (8.5-10.1); CARBON DIOXIDE LEVEL 23 MMOL/L (20-31); CHLORIDE LEVEL 111 MMOL/L (98-107); CORTISOL AM 5.7 UG/DL (4.3-22.4); CREATININE FOR GFR 0.89 MG/DL (0.70-1.30); GLOMERULAR FILTRATION RATE > 60.0 (>60); GLUCOSE, FASTING 85 MG/DL (60-100); POTASSIUM SERUM 5.7 MMOL/L (3.5-5.1); SODIUM LEVEL 137 MMOL/L (136-145)
[2024-03-08] MEDS: ALBUTEROL SULFATE 2.5MG/0.5ML INH NEB SOLN NEB ONE (07:27)
[2024-03-08 08:00] VITALS: BP 112/74; TEMP 97.5; O2SAT 96
[2024-03-08] MEDS: FUROSEMIDE 40MG/4ML VIAL IV ONE (08:05)
[2024-03-08 12:00] VITALS: BP 128/76; TEMP 97.5; O2SAT 97
[2024-03-08 13:59] LABS: ABG BASE EXCESS -3.6 (-2.0-2.0); ABG HCO3 22.1 MMOL/L (22.0-26.0); ABG O2 SATURATION 97.8 % (95.0-99.0); ABG PARTIAL PRESSURE CO2 42.4 mmHg (35.0-45.0); ABG PARTIAL PRESSURE O2 105.4 mmHg (75.0-100.0); ABG STANDARD HCO3 21.5 MMOL/L. (22.0-26.0); ABG TOTAL CO2 23.4 MMOL/L (22.0-29.0); ABG pH (ARTERIAL) 7.335 UNITS (7.350-7.450)
[2024-03-08 14:12] LABS: APPEARANCE, URINE HAZY (CLEAR); BACTERIA, URINE AUTO NEGATIVE (NEGATIVE); BILIRUBIN, URINE AUTO NEGATIVE (NEGATIVE); BLOOD, URINE BLOOD NEGATIVE (NEGATIVE); COLOR, URINE YELLOW (YELLOW); GLUCOSE, URINE (UA) AUTO NEGATIVE (NEGATIVE); KETONE, URINE AUTO NEGATIVE (NEGATIVE); LEUKOCYTE ESTERASE, URINE AUTO NEGATIVE (NEGATIVE); MUCUS, URINE SMALL (NEGATIVE); NITRITE, URINE AUTO NEGATIVE (NEGATIVE); PROTEIN, URINE AUTO NEGATIVE (NEGATIVE); RBC, URINE AUTO 0 /HPF (0-3); SPECIFIC GRAVITY URINE AUTO 1.026 (1.002-1.035); SQUAMOUS EPITHELIAL CELL UR AU 0 /HPF (0-6); UROBILINOGEN, URINE AUTO 0.2 mg/dL (0.0-2.0); WBC, URINE AUTO 0 /HPF (0-3)
[2024-03-08 14:27] LABS: HCV RNA QUANTITATION <15 NOT DETECTED IU/mL (NOT DETECTED); HCV RNA log10 <1.18 NOT DETECTED Log IU/mL (NOT DETECTED)
[2024-03-08 14:30] LABS: CHLORIDE,RANDOM URINE 58 MMOL/L; SODIUM,RANDOM URINE 34 MMOL/L
[2024-03-08 14:51] LABS: OSMOLALITY URINE 829 MOSM/KG (50-1400)
[2024-03-08 16:00] VITALS: BP 135/81; TEMP 97.7; O2SAT 95
[2024-03-08 20:28] VITALS: BP 123/68; TEMP 97.7; O2SAT 97
[2024-03-09] VITALS (7 sets, daily range): BP systolic 93–136; BP diastolic 45–96; TEMP 97.3–97.7; O2SAT 95–97
[2024-03-09 05:23] LABS: BASO % 0.7 % (0.0-1.0); EOS # 0.3 10^3/uL (0.0-0.5); EOS % 5.1 % (0.0-3.0); HEMATOCRIT 44.6 % (42.0-52.0); HEMOGLOBIN 13.9 g/dl (13.5-17.5); LYMPH # 2.6 10^3/uL (1.5-5.0); LYMPH % 42.7 % (24.0-44.0); MEAN CORPUSCULAR HEMOGLOBIN 28.5 pg (27.0-33.0); MEAN CORPUSCULAR HGB CONC 31.2 g/dl (32.0-36.5); MEAN CORPUSCULAR VOLUME 91.6 fl (80.0-96.0); MONO # 0.7 10^3/uL (0.0-0.8); MONO % 11.3 % (2.0-8.0); NEUTROPHILS # 2.4 10^3/uL (1.5-8.5); NEUTROPHILS % 39.9 % (36.0-66.0); PLATELET COUNT, AUTOMATED 228 10^3/uL (150-450); RED BLOOD COUNT 4.87 10^6/uL (4.30-6.10)
[2024-03-09 05:48] LABS: BLOOD UREA NITROGEN 19 MG/DL (9-23); CARBON DIOXIDE LEVEL 22 MMOL/L (20-31); CHLORIDE LEVEL 112 MMOL/L (98-107); CREATININE FOR GFR 0.85 MG/DL (0.70-1.30); GLOMERULAR FILTRATION RATE > 60.0 (>60); GLUCOSE, FASTING 88 MG/DL (60-100); POTASSIUM SERUM 5.5 MMOL/L (3.5-5.1); SODIUM LEVEL 139 MMOL/L (136-145)
[2024-03-09] MEDS: CALCIUM GLUCONATE 1,000 MG in DEXTROSE 5% (D5W) MINI-BAG PLU 100 ML IV ONE (09:06)
[2024-03-09] MEDS: MOM 30ML SUSPENSION UDC PO PRN (09:10)
[2024-03-09] MEDS: PATIROMER SORBITEX CALCIUM 8.4 GM POWDER PACKET (VELTASSA) PO ONE ×2 (10:11→18:16)
[2024-03-09] MEDS ORDERED: GLYCERIN ADULT SUPP PR ONE (16:00)
[2024-03-09] MEDS: LACTULOSE 20GM/30ML SYRUP UDC PO ONE (17:36)
[2024-03-09] MEDS: SENOKOT S TAB PO ONE (17:37)
[2024-03-09] MEDS ORDERED: BISACODYL 10MG SUPP PR SCH (21:00)
[2024-03-10] VITALS: BP 113/68; TEMP 97.5; O2SAT 96
[2024-03-10 04:00] VITALS: BP 101/58; TEMP 97.3; O2SAT 96
[2024-03-10 07:29] LABS: BASO % 0.7 % (0.0-1.0); EOS # 0.3 10^3/uL (0.0-0.5); EOS % 5.1 % (0.0-3.0); HEMATOCRIT 44.3 % (42.0-52.0); HEMOGLOBIN 13.5 g/dl (13.5-17.5); LYMPH # 2.4 10^3/uL (1.5-5.0); LYMPH % 44.4 % (24.0-44.0); MEAN CORPUSCULAR HEMOGLOBIN 28.1 pg (27.0-33.0); MEAN CORPUSCULAR HGB CONC 30.5 g/dl (32.0-36.5); MEAN CORPUSCULAR VOLUME 92.3 fl (80.0-96.0); MONO # 0.7 10^3/uL (0.0-0.8); MONO % 11.9 % (2.0-8.0); NEUTROPHILS # 2.1 10^3/uL (1.5-8.5); NEUTROPHILS % 37.5 % (36.0-66.0); PLATELET COUNT, AUTOMATED 207 10^3/uL (150-450); WHITE BLOOD COUNT 5.5 10^3/uL (4.0-10.0)
[2024-03-10 07:50] LABS: BLOOD UREA NITROGEN 13 MG/DL (9-23); CALCIUM LEVEL 8.9 MG/DL (8.5-10.1); CARBON DIOXIDE LEVEL 24 MMOL/L (20-31); CHLORIDE LEVEL 114 MMOL/L (98-107); CREATININE FOR GFR 0.91 MG/DL (0.70-1.30); GLOMERULAR FILTRATION RATE > 60.0 (>60); GLUCOSE, FASTING 86 MG/DL (60-100); POTASSIUM SERUM 5.7 MMOL/L (3.5-5.1); SODIUM LEVEL 141 MMOL/L (136-145)
[2024-03-10 08:30] VITALS: BP 111/82; TEMP 97.5; O2SAT 98
[2024-03-10] MEDS: PATIROMER SORBITEX CALCIUM 8.4 GM POWDER PACKET (VELTASSA) PO ONE (08:43)
[2024-03-10 12:00] VITALS: BP 133/74; TEMP 97.5; O2SAT 91
[2024-03-10] MEDS: SENOKOT S TAB PO ONE (12:15)
[2024-03-10] MEDS: PATIROMER SORBITEX CALCIUM 8.4 GM POWDER PACKET (VELTASSA) PO SCH (12:15)
[2024-03-10 16:25] VITALS: BP 132/75; TEMP 97.7; O2SAT 95
[2024-03-10 20:00] VITALS: BP 123/64; TEMP 96.6; O2SAT 96; O2SAT 97
[2024-03-11] VITALS: BP 102/60; TEMP 97.5; O2SAT 96
[2024-03-11 04:00] VITALS: BP 128/75; TEMP 97.5; O2SAT 97
[2024-03-11 06:25] LABS: BASO # 0.1 10^3/uL (0.0-0.2); BASO % 0.8 % (0.0-1.0); EOS # 0.3 10^3/uL (0.0-0.5); EOS % 5.1 % (0.0-3.0); HEMATOCRIT 42.8 % (42.0-52.0); LYMPH # 2.6 10^3/uL (1.5-5.0); LYMPH % 44.2 % (24.0-44.0); MEAN CORPUSCULAR HEMOGLOBIN 28.6 pg (27.0-33.0); MEAN CORPUSCULAR HGB CONC 30.4 g/dl (32.0-36.5); MEAN CORPUSCULAR VOLUME 94.1 fl (80.0-96.0); MONO # 0.7 10^3/uL (0.0-0.8); MONO % 11.1 % (2.0-8.0); NEUTROPHILS # 2.3 10^3/uL (1.5-8.5); NEUTROPHILS % 38.5 % (36.0-66.0); PLATELET COUNT, AUTOMATED 205 10^3/uL (150-450); RED BLOOD COUNT 4.55 10^6/uL (4.30-6.10); WHITE BLOOD COUNT 5.9 10^3/uL (4.0-10.0)
[2024-03-11 06:48] LABS: BLOOD UREA NITROGEN 13 MG/DL (9-23); CALCIUM LEVEL 9.1 MG/DL (8.5-10.1); CARBON DIOXIDE LEVEL 23 MMOL/L (20-31); CHLORIDE LEVEL 113 MMOL/L (98-107); CREATININE FOR GFR 0.81 MG/DL (0.70-1.30); GLOMERULAR FILTRATION RATE > 60.0 (>60); GLUCOSE, FASTING 75 MG/DL (60-100); POTASSIUM SERUM 5.8 MMOL/L (3.5-5.1); SODIUM LEVEL 140 MMOL/L (136-145)
[2024-03-11 08:13] VITALS: BP 120/66; TEMP 97.7; O2SAT 97
[2024-03-11] MEDS: SENOKOT S TAB PO ONE (08:15)
[2024-03-11] MEDS: CALCIUM GLUCONATE 1,000 MG in DEXTROSE 5% (D5W) MINI-BAG PLU 100 ML IV ONE ×2 (08:15→20:20)
[2024-03-11] MEDS: LACTULOSE 20GM/30ML SYRUP UDC PO ONE (08:15)
[2024-03-11] MEDS: PATIROMER SORBITEX CALCIUM 8.4 GM POWDER PACKET (VELTASSA) PO ONE (08:16)
[2024-03-11 12:12] VITALS: BP 137/77; TEMP 97.7; O2SAT 96
[2024-03-11 20:00] VITALS: BP 150/82; TEMP 97.2; O2SAT 97
[2024-03-11 20:09] LABS: POTASSIUM SERUM 5.7 MMOL/L (3.5-5.1)
[2024-03-11 22:30] LABS: MAGNESIUM LEVEL 1.5 MG/DL (1.8-2.4)
[2024-03-11 23:10] VITALS: O2SAT 97
[2024-03-12] VITALS: BP 136/80; TEMP 97.2; O2SAT 98
[2024-03-12 04:00] VITALS: BP 120/72; TEMP 97.3; O2SAT 96
[2024-03-12 06:20] LABS: BASO % 0.7 % (0.0-1.0); EOS # 0.3 10^3/uL (0.0-0.5); EOS % 4.7 % (0.0-3.0); HEMATOCRIT 41.7 % (42.0-52.0); HEMOGLOBIN 12.9 g/dl (13.5-17.5); LYMPH # 2.3 10^3/uL (1.5-5.0); LYMPH % 43.4 % (24.0-44.0); MEAN CORPUSCULAR HEMOGLOBIN 28.9 pg (27.0-33.0); MEAN CORPUSCULAR HGB CONC 30.9 g/dl (32.0-36.5); MEAN CORPUSCULAR VOLUME 93.3 fl (80.0-96.0); MONO # 0.5 10^3/uL (0.0-0.8); MONO % 9.9 % (2.0-8.0); NEUTROPHILS # 2.2 10^3/uL (1.5-8.5); NEUTROPHILS % 40.7 % (36.0-66.0); PLATELET COUNT, AUTOMATED 204 10^3/uL (150-450); RED BLOOD COUNT 4.47 10^6/uL (4.30-6.10); WHITE BLOOD COUNT 5.4 10^3/uL (4.0-10.0)
[2024-03-12 06:50] LABS: BLOOD UREA NITROGEN 12 MG/DL (9-23); CALCIUM LEVEL 8.9 MG/DL (8.5-10.1); CARBON DIOXIDE LEVEL 21 MMOL/L (20-31); CHLORIDE LEVEL 114 MMOL/L (98-107); CREATININE FOR GFR 0.82 MG/DL (0.70-1.30); GLOMERULAR FILTRATION RATE > 60.0 (>60); GLUCOSE, FASTING 85 MG/DL (60-100); POTASSIUM SERUM 5.8 MMOL/L (3.5-5.1); SODIUM LEVEL 141 MMOL/L (136-145)
[2024-03-12 08:00] VITALS: BP 125/73; TEMP 98.1; O2SAT 98
[2024-03-12] MEDS: CALCIUM GLUCONATE 1,000 MG in DEXTROSE 5% (D5W) MINI-BAG PLU 100 ML IV ONE (09:19)
[2024-03-12] MEDS: PATIROMER SORBITEX CALCIUM 8.4 GM POWDER PACKET (VELTASSA) PO ONE (10:29)
[2024-03-12 12:00] VITALS: BP 125/66; TEMP 97.7; O2SAT 94
[2024-03-12 16:16] VITALS: BP 155/89; TEMP 97.7; O2SAT 96
[2024-03-12 20:00] VITALS: BP 153/88; TEMP 97; O2SAT 98
[2024-03-12] MEDS: QUEtiapine FUMARATE 50MG TAB PO SCH (21:09)
[2024-03-13] VITALS (7 sets, daily range): BP systolic 124–143; BP diastolic 68–89; TEMP 97.2–97.9; O2SAT 95–98
[2024-03-13 06:50] LABS: BASO % 0.5 % (0.0-1.0); EOS # 0.3 10^3/uL (0.0-0.5); EOS % 4.8 % (0.0-3.0); HEMATOCRIT 41.8 % (42.0-52.0); HEMOGLOBIN 12.9 g/dl (13.5-17.5); LYMPH # 2.5 10^3/uL (1.5-5.0); LYMPH % 40.4 % (24.0-44.0); MEAN CORPUSCULAR HGB CONC 30.9 g/dl (32.0-36.5); MEAN CORPUSCULAR VOLUME 93.9 fl (80.0-96.0); MONO # 0.8 10^3/uL (0.0-0.8); MONO % 12.2 % (2.0-8.0); NEUTROPHILS # 2.6 10^3/uL (1.5-8.5); NEUTROPHILS % 41.5 % (36.0-66.0); PLATELET COUNT, AUTOMATED 190 10^3/uL (150-450); RED BLOOD COUNT 4.45 10^6/uL (4.30-6.10); WHITE BLOOD COUNT 6.2 10^3/uL (4.0-10.0)
[2024-03-13 07:17] LABS: BLOOD UREA NITROGEN 14 MG/DL (9-23); CALCIUM LEVEL 8.9 MG/DL (8.5-10.1); CARBON DIOXIDE LEVEL 20 MMOL/L (20-31); CHLORIDE LEVEL 114 MMOL/L (98-107); CREATININE FOR GFR 0.85 MG/DL (0.70-1.30); GLOMERULAR FILTRATION RATE > 60.0 (>60); GLUCOSE, FASTING 91 MG/DL (60-100); POTASSIUM SERUM 5.4 MMOL/L (3.5-5.1); SODIUM LEVEL 140 MMOL/L (136-145)
[2024-03-13] MEDS: cloNIDine 0.1MG TABLET PO PRN (08:58)
[2024-03-13] MEDS: PATIROMER SORBITEX CALCIUM 8.4 GM POWDER PACKET (VELTASSA) PO SCH (12:32)
[2024-03-13 16:57] LABS: BLOOD UREA NITROGEN 16 MG/DL (9-23); CALCIUM LEVEL 9.5 MG/DL (8.5-10.1); CARBON DIOXIDE LEVEL 24 MMOL/L (20-31); CHLORIDE LEVEL 111 MMOL/L (98-107); CREATININE FOR GFR 0.97 MG/DL (0.70-1.30); GLOMERULAR FILTRATION RATE > 60.0 (>60); GLUCOSE, FASTING 94 MG/DL (60-100); POTASSIUM SERUM 5.2 MMOL/L (3.5-5.1); SODIUM LEVEL 141 MMOL/L (136-145)
[2024-03-13] MEDS: SODIUM BICARBONATE 325 MG TAB PO SCH (20:38)
[2024-03-14] VITALS: BP 132/82; TEMP 97.2; O2SAT 96
[2024-03-14 04:00] VITALS: BP 111/61; TEMP 97.5; O2SAT 98
[2024-03-14 05:59] LABS: BASO # 0.1 10^3/uL (0.0-0.2); BASO % 0.7 % (0.0-1.0); EOS # 0.4 10^3/uL (0.0-0.5); EOS % 5.5 % (0.0-3.0); HEMATOCRIT 42.6 % (42.0-52.0); LYMPH # 2.8 10^3/uL (1.5-5.0); LYMPH % 38.6 % (24.0-44.0); MEAN CORPUSCULAR HEMOGLOBIN 28.6 pg (27.0-33.0); MEAN CORPUSCULAR HGB CONC 30.5 g/dl (32.0-36.5); MEAN CORPUSCULAR VOLUME 93.8 fl (80.0-96.0); MONO # 0.9 10^3/uL (0.0-0.8); MONO % 11.9 % (2.0-8.0); NEUTROPHILS # 3.1 10^3/uL (1.5-8.5); NEUTROPHILS % 42.3 % (36.0-66.0); PLATELET COUNT, AUTOMATED 196 10^3/uL (150-450); RED BLOOD COUNT 4.54 10^6/uL (4.30-6.10); WHITE BLOOD COUNT 7.2 10^3/uL (4.0-10.0)
[2024-03-14 06:38] LABS: BLOOD UREA NITROGEN 15 MG/DL (9-23); CARBON DIOXIDE LEVEL 21 MMOL/L (20-31); CHLORIDE LEVEL 114 MMOL/L (98-107); CREATININE FOR GFR 0.82 MG/DL (0.70-1.30); GLOMERULAR FILTRATION RATE > 60.0 (>60); GLUCOSE, FASTING 78 MG/DL (60-100); POTASSIUM SERUM 6.1 MMOL/L (3.5-5.1); SODIUM LEVEL 141 MMOL/L (136-145)
[2024-03-14 08:00] VITALS: BP 124/89; TEMP 97.7; O2SAT 99
[2024-03-14] MEDS: LACTULOSE 20GM/30ML SYRUP UDC PO ONE (08:01)
[2024-03-14] MEDS: PATIROMER SORBITEX CALCIUM 8.4 GM POWDER PACKET (VELTASSA) PO ONE (08:01)
[2024-03-14] MEDS: CALCIUM GLUCONATE 1,000 MG in DEXTROSE 5% (D5W) MINI-BAG PLU 100 ML IV ONE (08:01)
[2024-03-14] MEDS: SENOKOT S TAB PO ONE (08:02)
[2024-03-14] MEDS: SODIUM BICARBONATE 325 MG TAB PO ONE (08:04)
[2024-03-14 12:00] VITALS: BP 131/84; TEMP 97.7; O2SAT 96
[2024-03-14] MEDS ORDERED: LACTULOSE 20GM/30ML SYRUP UDC PO ONE (15:00)
[2024-03-14] MEDS ORDERED: CALCIUM GLUCONATE 1,000 MG in DEXTROSE 5% (D5W) MINI-BAG PLU 100 ML IV ONE (15:00)
[2024-03-14] MEDS ORDERED: PATIROMER SORBITEX CALCIUM 8.4 GM POWDER PACKET (VELTASSA) PO ONE (15:00)
[2024-03-14] MEDS ORDERED: SENOKOT S TAB PO ONE (15:00)
[2024-03-14] MEDS ORDERED: MAGNESIUM OXIDE 400MG TAB (MAG-OX) PO ONE (15:00)
[2024-03-14] MEDS ORDERED: VELT1POW3 PO (15:35)
[2024-03-14] MEDS ORDERED: SODI325T9 PO (15:36)
[2024-03-14] MEDS ORDERED: PATIROMER SORBITEX CALCIUM 8.4 GM POWDER PACKET (VELTASSA) PO SCH (21:00)
[2024-03-15] MEDS ORDERED: PATIROMER SORBITEX CALCIUM 8.4 GM POWDER PACKET (VELTASSA) PO SCH (09:00)
== END 2024-03-14 15:05 | disposition left against medical advice (07) | DRG 425 ==
LOC: M ED 18:24 → M ED INP 18:25 → UNDOADMOB 23:39 → M ED INP 23:39 → M MSPAV 03-07 00:36 → OBSVTOIN 03-11 11:56
PROVIDERS: ADMIT Student in an Organized Health Care Education/Training Program; ATTEND General Practice
DX: E87.5 Hyperkalemia (principal); E87.20 Acidosis, unspecified; Z91.148 Patient's other noncompliance with medication regimen for other reason; B19.20 Unspecified viral hepatitis C without hepatic coma; F15.10 Other stimulant abuse, uncomplicated; F31.9 Bipolar disorder, unspecified; K21.9 Gastro-esophageal reflux disease without esophagitis; R20.2 Paresthesia of skin; R29.6 Repeated falls; R53.1 Weakness; Z59.00 Homelessness unspecified; Z72.0 Tobacco use; I10 Essential (primary) hypertension; E87.8 Other disorders of electrolyte and fluid balance, not elsewhere classified

== ENCOUNTER 2024-06-05 07:04 | Emergency (ER) | payer MEDICAID, OTHER, SELFPAY ==
[~2024-06-05] VITALS: Ht 165.1 cm; Wt 65.9 kg
[~2024-06-05 07:04] MED LIST changes: +CLONI1TA PO; +QUET100T2 PO; +SERO200T PO; +SODI325T9 PO; +VELT1POW3 PO
[2024-06-05] MEDS ORDERED: ALOE170G TOP (08:27)
[2024-06-05] MEDS ORDERED: IBUP-1022 PO (08:27)
[2024-06-05] MEDS ORDERED: [UNRECOGNIZED DRUG - REMARK] TP (08:29)
[2024-06-05] MEDS: ACETAMINOPHEN 500 MG TAB PO ONE (08:30)
[2024-06-05] MEDS: KETOROLAC 60MG 2ML VIAL IM ONE (08:30)
[2024-06-05] MEDS: BOOSTRIX VACCINE (TETANUS/DIPHTH/ACEL. PERTUSSIS) 0.5ML SYR IM.IMMUN ONE (08:35)
[2024-06-05 11:53] VITALS: BP 143/81; TEMP 97.9; O2SAT 99
== END 2024-06-05 12:26 | disposition home or self-care (01) ==
LOC: M ED 07:04
DX: T34.821A Frostbite with tissue necrosis of right foot, initial encounter (principal); Z79.1 Long term (current) use of non-steroidal anti-inflammatories (NSAID); Z79.899 Other long term (current) drug therapy; Z23 Encounter for immunization
CPT/HCPCS: 90471; 90715; 96372; 99284; J1885

== ENCOUNTER 2024-08-17 22:34 | Emergency (ER) | payer MEDICAID, SELFPAY ==
[~2024-08-17] VITALS: Ht 165.1 cm; Wt 96.6 kg
[~2024-08-17 22:34] MED LIST changes: +ALOE170G TOP; +IBUP-1022 PO; +[UNRECOGNIZED DRUG - REMARK] TP
[2024-08-17 22:36] VITALS: TEMP 96.6
[2024-08-18 01:38] VITALS: BP 139/90; O2SAT 9
== END 2024-08-18 01:43 | disposition home or self-care (01) ==
LOC: M ED 22:34
DX: T18.9XXA Foreign body of alimentary tract, part unspecified, initial encounter (principal); F19.10 Other psychoactive substance abuse, uncomplicated; F17.210 Nicotine dependence, cigarettes, uncomplicated; F12.10 Cannabis abuse, uncomplicated; F20.9 Schizophrenia, unspecified; Z79.1 Long term (current) use of non-steroidal anti-inflammatories (NSAID); Z79.899 Other long term (current) drug therapy

== ENCOUNTER 2024-10-26 20:22 | Emergency (ER) | payer MEDICAID, OTHER ==
[~2024-10-26] VITALS: Ht 165.1 cm; Wt 79.9 kg
[~2024-10-26 20:22] MED LIST changes: -DEPA250T32 PO; +DIVA-65 PO
[2024-10-26 23:40] VITALS: BP 137/79; TEMP 98.7; O2SAT 98
== END 2024-10-27 00:13 | disposition home or self-care (01) ==
LOC: M ED 20:22
DX: S44.21XA Injury of radial nerve at upper arm level, right arm, initial encounter (principal); F17.200 Nicotine dependence, unspecified, uncomplicated; K21.9 Gastro-esophageal reflux disease without esophagitis; F19.10 Other psychoactive substance abuse, uncomplicated; F31.9 Bipolar disorder, unspecified; Z79.1 Long term (current) use of non-steroidal anti-inflammatories (NSAID); Z79.899 Other long term (current) drug therapy; Y92.9 Unspecified place or not applicable; Y93.89 Activity, other specified; Y99.9 Unspecified external cause status